=== PATIENT | female | born 1955 | race Caucasian/White ===

== ENCOUNTER 2023-07-30 08:03 | Outpatient (CLI) | payer MEDICARE, SELFPAY ==
--- NOTE | 2023-07-30 08:15 | CRLHL7_ITS ---
For Patients: As a result of the Century Cures Act, medical imaging exams and procedure reports are released immediately into your electronic medical record. You may view this report before your referring provider. If you have questions, please contact your health care provider. BILATERAL DIGITAL SCREENING MAMMOGRAM WITH TOMOSYNTHESIS AND COMPUTER-AIDED DETECTION CLINICAL HISTORY: Routine screening exam. COMPARISON: 07/12/2021, 02/12/2020, 12/27/2018, 02/20/2013. TECHNIQUE: Digital mammogram in CC and MLO projections including computer-aided detection (CAD). Tomosynthesis utilized. BREAST COMPOSITION: There are areas of scattered fibroglandular density. FINDINGS: RIGHT Breast: Focal asymmetric density 6 o`clock 8 cm from the nipple. LEFT Breast: No suspicious findings. IMPRESSION: RIGHT breast asymmetry/mass. RECOMMENDATIONS: Additional mammographic views of the RIGHT breast including 3D spot compression CC/MLO. RIGHT breast ultrasound may also be required. BI-RADS Category 0: Incomplete: Need Additional Imaging Evaluation and/or Prior Mammograms for Comparison The [facility] will contact the patient for follow-up. A lay language report of this examination will be provided to the patient. Dictated by Mckinley Bhatti MD @ 08/01/2023 9:50:00 AM jj/Dictated by: Mckinley Bhatti MD @ 08/01/2023 9:50:00 AM (Electronically Signed)
== END 2023-07-30 08:04 | disposition home or self-care (01) ==
LOC: MAMMO 08:04
PROVIDERS: PCP Family Medicine; Visit Provider Family Medicine
DX: Z12.31 Encounter for screening mammogram for malignant neoplasm of breast (principal); N63.10 Unspecified lump in the right breast, unspecified quadrant
CPT/HCPCS: 77063; 77067

== ENCOUNTER 2023-08-10 07:29 | Outpatient (CLI) | payer MEDICARE, SELFPAY ==
--- NOTE | 2023-08-10 07:45 | CRLHL7_ITS ---
For Patients: As a result of the Cures Act, medical imaging exams and procedure reports are released immediately into your electronic medical record. You may view this report before your referring provider. If you have questions, please contact your health care provider. DIGITAL DIAGNOSTIC RIGHT MAMMOGRAM USING TOMOSYNTHESIS AND COMPUTER-AIDED DETECTION RIGHT BREAST ULTRASOUND CLINICAL HISTORY: RIGHT breast mass/asymmetry. COMPARISON: 07/30/2023, 07/12/2021. TECHNIQUE: Digital RIGHT mammogram in two projections. Tomosynthesis utilized. Real-time ultrasound imaging of RIGHT breast with imaging documentation. BREAST COMPOSITION: There are areas of scattered fibroglandular density. FINDINGS: 3D spot compression CC/MLO RIGHT breast mammogram images submitted. Persistent irregular density within the inferior RIGHT breast. No suspicious calcifications. Targeted RIGHT breast ultrasound performed. At 6 o`clock 5 cm from the nipple there is an irregular hypoechoic and shadowing solid mass measuring 1.7 x 0.8 x 1.1 cm. A suspicious RIGHT axillary lymph node is not present. IMPRESSION: Suspicious 1.7 cm mass RIGHT breast 6 o`clock 5 cm from the nipple. RECOMMENDATIONS: Ultrasound-guided core needle biopsy. Results and recommendations discussed with the patient. BI-RADS Category 4: Suspicious A lay language report of this examination will be provided to the patient. Dictated by Mckinley Bhatti MD @ 08/10/2023 9:01:44 AM j/Dictated by: Mckinley Bhatti MD @ 08/10/2023 9:01:00 AM (Electronically Signed)
--- NOTE | 2023-08-10 08:15 | CRLHL7_ITS ---
For Patients: As a result of the Cures Act, medical imaging exams and procedure reports are released immediately into your electronic medical record. You may view this report before your referring provider. If you have questions, please contact your health care provider. PLEASE SEE DIGITAL DIAGNOSTIC RIGHT MAMMOGRAM PERFORMED SAME DAY CRL:ashley ramirez/Dictated by: Mckinley Bhatti MD @ 08/10/2023 9:01:00 AM (Electronically Signed)
== END 2023-08-10 07:30 | disposition home or self-care (01) ==
LOC: MAMMO 07:35
PROVIDERS: PCP Family Medicine; Visit Provider Family Medicine
DX: N63.10 Unspecified lump in the right breast, unspecified quadrant (principal); R92.8 Other abnormal and inconclusive findings on diagnostic imaging of breast
CPT/HCPCS: 76642; 77065; G0279

== ENCOUNTER 2023-08-16 10:03 | Outpatient (CLI) | payer MEDICARE, SELFPAY ==
--- NOTE | 2023-08-16 10:15 | CRLHL7_ITS ---
For Patients: As a result of the Century Cures Act, medical imaging exams and procedure reports are released immediately into your electronic medical record. You may view this report before your referring provider. If you have questions, please contact your health care provider. ULTRASOUND-GUIDED BREAST BIOPSY AND POST-BIOPSY DIGITAL MAMMOGRAM FOR BIOPSY MARKER PLACEMENT CLINICAL HISTORY: Suspicious mass. COMPARISON STUDIES: 08/10/2023. TECHNIQUE: Real-time ultrasound with image documentation was used for targeting the breast lesion. Core biopsy specimens were obtained using an automated gun with an 18-gauge biopsy needle. Post-biopsy CC and ML digital mammograms were obtained to document position of the biopsy marker. CONSENT and TIME OUT: The procedure, risks, and alternatives were explained to the patient and a consent was signed. [place] Protocol was followed including pre-procedure verification that relevant information/documentation was available, reviewed and properly matched to the patient; consent accurate and complete; and equipment and supplies available. Time Out was conducted just prior to starting procedure to verify the four required elements: patient identity, correct side/site marked (if applicable), procedure, relevant images/results properly labeled and displayed (if applicable). PROCEDURE: The patient was positioned supine on the ultrasound table. The breast was prepped with Betadine or ChloraPrep. 8 cc of 1 percent lidocaine was used for local anesthesia. Core samples were obtained. A sterile metal biopsy clip was placed percutaneously to carl the lesion position within the breast. The specimens were placed in 10% formalin and sent to the pathology department. Pressure was held on the biopsy site until all bleeding subsided. The skin incision was closed with Steri-Strips. An ice pack was positioned over the biopsy site. Post-biopsy instructions were reviewed with the patient, and a written copy was given to her. LATERALITY: RIGHT breast. LESION: Spiculated hypoechoic solid mass measuring 1.7 x 0.8 x 1.1 cm at 6 o`clock 5 cm from the nipple. SUSPICION FOR MALIGNANCY: High. NUMBER OF SAMPLES: 6. BIOPSY CLIP SHAPE: Oval. PROXIMITY OF CLIP TO TARGET: Within the lesion. IMPRESSION: Ultrasound-guided breast biopsy. When the pathology report is available, an addendum to this report will be made. ACR not applicable Dictated by Mckinley Bhatti MD @ 08/16/2023 12:11:50 PM jj/Dictated by: Mckinley Bhatti MD @ 08/16/2023 12:11:00 PM (Electronically Signed)
--- NOTE | 2023-08-16 11:00 | CRLHL7_ITS ---
For Patients: As a result of the Century Cures Act, medical imaging exams and procedure reports are released immediately into your electronic medical record. You may view this report before your referring provider. If you have questions, please contact your health care provider. PLEASE SEE ULTRASOUND-GUIDED RIGHT BREAST BIOPSY PERFORMED SAME DAY CRL:ashley ramirez/Dictated by: Mckinley Bhatti MD @ 08/16/2023 12:11:00 PM (Electronically Signed)
== END 2023-08-16 10:04 | disposition home or self-care (01) ==
LOC: US 10:05
PROVIDERS: PCP Family Medicine; Visit Provider Family Medicine
DX: N63.10 Unspecified lump in the right breast, unspecified quadrant (principal); R92.8 Other abnormal and inconclusive findings on diagnostic imaging of breast
CPT/HCPCS: 19083; 77065; 88305; 88341; 88342; 88360; 88361; A4648; A4649

== ENCOUNTER 2023-08-28 09:06 | Outpatient (CLI) | payer MEDICARE, SELFPAY ==
--- NOTE | 2023-08-28 09:15 | MR_ITS ---
Patient: HARMAN TREVINO Facility:?[facility] RIS Patient ID:?[id number] Site Patient ID:?[id number]. Site :?[id number] Study:?MRI-Breast W/ and W/O Cont 20 CC DOATERM-08/28/2023 12:09:06 PM Ordering Physician:?MOY GUZMAN Final Report: BILATERAL BREAST MRI WITHOUT AND WITH GADOLINIUM CLINICAL HISTORY: Recently diagnosed left breast cancer after ultrasound-guided biopsy of a 1.7 cm mass at 6 o`clock, 5 cm from the nipple. INDICATION FOR BREAST MRI: Staging of newly diagnosed breast cancer and screening of contralateral breast. Regional lymph nodes will also be assessed. COMPARISON STUDIES: Screening mammograms 07/30/2023 and 07/12/2021. Diagnostic right mammogram and ultrasound 08/10/2023. Images from ultrasound-guided right breast biopsy and postbiopsy mammogram 07/16/2023. CONTRAST: 20 mL Dotarem. TECHNIQUE: The patient was positioned prone using a breast coil. Multiple imaging sequences were obtained using 1-1.5 mm thick slices with no gap. The image sequences include T2-weighted STIR in the axial plane, T1-weighted nonfat-saturated gradient echo in the axial plane, pre- and post-contrast T1-weighted FLASH 3D with fat suppression in the axial plane, and T1-weighted FLASH high resolution 3D with fat suppression in the sagittal plane. Image post-processing was performed on a [employer] workstation. Complex 3D rendering including maximum intensity projections (MIPS) and volumetric renderings were obtained to optimize visualization of the extent of pathology and relationship to the nipple, skin, and chest wall. This aids in determining feasibility of breast conservation surgery. Subtraction, multiplanar reconstruction, mean curve determination, and angiogenesis mapping were also performed. The study was technically adequate. FINDINGS: Amount of Fibroglandular Tissue: Scattered fibroglandular tissue. Breast Background Enhancement: Mild. RIGHT Breast: At 6 o`clock posterior depth, 8 cm posterior to the nipple there is an irregular heterogeneously enhancing mass with irregular margins measuring 1.2 x 1.3 x 1.5 cm. There is susceptibility artifact within the mass from the clip marking the site of biopsy-proven malignancy. Kinetic curve analysis shows fast initial and plateau delayed phase enhancement. No other abnormal enhancement within the breasts. LEFT Breast: There is no suspicious mass or enhancement within the breast. Lymph Nodes: No abnormal morphology lymph nodes. Other Findings: There are 0.9 and 0.3 cm T2 hyperintense, nonenhancing probable cysts in the left hepatic lobe. IMPRESSIONS AND RECOMMENDATIONS: 1. The biopsy-proven malignancy at 6 o`clock in the right breast measures up to 1.5 cm on MRI. Continued surgical/oncologic management is recommended. 2. No MRI evidence of malignancy in the left breast. 3. No abnormal morphology lymph nodes. BI-RADS Category 6: Known, biopsy-proven malignancy Dictated by Terra Christensen MD @ 09/24/2023 3:59:22 PM jj/Dictated by: Terra Christensen MD @ 09/24/2023 4:13:00 PM Signed by:Rosi Christensen MD @09/24/2023 5:15:58 PM (Electronic Signature)
== END 2023-08-28 09:07 | disposition home or self-care (01) ==
LOC: MRI 09:08
PROVIDERS: PCP Family Medicine; Visit Provider Surgery
DX: C50.911 Malignant neoplasm of unspecified site of right female breast (principal)
CPT/HCPCS: 77049; C8908; C8937; A9575

== ENCOUNTER 2023-09-13 06:50 | Day surgery (SDC) | payer MEDICARE, SELFPAY ==
--- NOTE | 2023-09-13 | MM_ITS ---
Patient: HARMAN TREVINO Facility:?[facility] RIS Patient ID:?[id number] Site Patient ID:?[id number]. Site :?[id number] Study:?XRay-Breast Right 2Dw/ CAD post wire placement-09/13/2023 9:50:07 AM Ordering Physician:?Rozina Angeles Final Report: PLEASE SEE ULTRASOUND-GUIDED RIGHT BREAST WIRE LOCALIZATION DONE SAME DAY CRL:ashley ramirez/Dictated by: Mckinley Bhatti MD @ 09/13/2023 10:05:00 AM Signed by:?Mckinley Bhatti MD @09/13/2023 11:45:29 AM (Electronic Signature)
[2023-09-13 07:07] VITALS: BP 123/77; PULSE 75; RESP 16; TEMP 36.6; O2SAT 96
[2023-09-13] MEDS: LACTATED RINGERS 1000 ML 1,000 ML 100 ML IV (07:34)
[2023-09-13] MEDS: SODIUM CHLORIDE 0.9 % (FLUSH) 10 ML SYRINGE IVF (07:34)
--- NOTE | 2023-09-13 08:00 | NM_ITS ---
Patient: HARMAN TREVINO Facility:?[facility] Patient ID:?[id number] Site Patient ID:?[id number]. Site :?[id number] Study:?NM-Breast Procedure Lymphangioscintigraphy-09/13/2023 8:52:52 AM Ordering Physician:MOY BAUER Final Report: SENTINEL LYMPH NODE LOCALIZATION INJECTION CLINICAL HISTORY: Right breast cancer LATERALITY: Right breast TECHNIQUE: With the patient supine, the periareolar right breast was cleansed with alcohol. 0.72 millicuries of technetium Tc 99m filtered sulfur colloid in a volume of 1 cc was injected intradermal in the upper outer periareolar breast with a 22- gauge needle. The patient tolerated the procedure well and there were no immediate complications. IMPRESSION: Injection for sentinel lymph node of the right breast. Dictated by Mckinley Bhatti MD @ 09/13/2023 9:12:05 AM Signed by:?Mckinley Bhatti MD @09/13/2023 9:12:05 AM (Electronic Signature)
--- NOTE | 2023-09-13 08:00 | NM_ITS ---
Patient: HARMAN TREVINO Facility:?[facility] Patient ID:?[id number] Site Patient ID:?[id number]. Site :?1955 Study:?NM-Breast Procedure Lymphangioscintigraphy-09/13/2023 8:52:52 AM Ordering Physician:MOY BAUER Final Report: SENTINEL LYMPH NODE LOCALIZATION INJECTION CLINICAL HISTORY: Right breast cancer LATERALITY: Right breast TECHNIQUE: With the patient supine, the periareolar right breast was cleansed with alcohol. 0.72 millicuries of technetium Tc 99m filtered sulfur colloid in a volume of 1 cc was injected intradermal in the upper outer periareolar breast with a 22- gauge needle. The patient tolerated the procedure well and there were no immediate complications. IMPRESSION: Injection for sentinel lymph node of the right breast. Dictated by Mckinley Bhatti MD @ 09/13/2023 9:12:05 AM Signed by:?Mckinley Bhatti MD @09/13/2023 9:12:05 AM (Electronic Signature)
--- NOTE | 2023-09-13 08:15 | US_ITS ---
Patient: HARMAN TREVINO Facility:?[facility] Patient ID:?[id number] Site Patient ID:?[id number]. Site :?1955 Study:?US-Breast Procedure Dr. Bhatti to read-09/13/2023 9:11:33 AM Ordering Physician:LIZETTE Final Report: BREAST WIRE LOCALIZATION USING ULTRASOUND GUIDANCE CLINICAL HISTORY: Right breast cancer. LATERALITY: Right breast. LESION: Solid hypoechoic lesion measuring 1.7 x 0.8 x 1.1 cm at 6 o`clock 5 cm from the nipple. LOCALIZATION WIRE: [place] hookwire. TECHNIQUE: The localization wire was placed using real-time ultrasound guidance with image documentation. Cranial-caudal and medial-lateral digital mammograms were obtained after localization wire placement. CONSENT and TIME OUT: The procedure, risks, and alternatives were explained to the patient and a consent was signed. [facility] Protocol was followed including pre-procedure verification that relevant information/documentation was available, reviewed and properly matched to the patient; consent accurate and complete; and equipment and supplies available. Time Out was conducted just prior to starting procedure to verify the four required elements: patient identity, correct side/site marked (if applicable), procedure, relevant images/results properly labeled and displayed (if applicable). PROCEDURE: The skin was prepped with ChloraPrep and 5 cc of 1% lidocaine was injected for local anesthesia. The localization wire was placed within or near the targeted breast lesion using ultrasound guidance. The patient tolerated the procedure well. PROXIMITY OF WIRE TO LESION: The wire is located within the mass adjacent to the clip. IMPRESSION: Successful breast wire localization. ACR not applicable Dictated by Mckinley Bhatti MD @ 09/13/2023 9:14:04 AM jj/Dictated by: Mckinley Bhatti MD @ 09/13/2023 9:14:00 AM Signed by:?Mckinley Bhatti MD @09/13/2023 11:45:40 AM (Electronic Signature)
--- NOTE | 2023-09-13 08:52 | MM_ITS ---
Patient: HARMAN TREVINO Facility:?[facility] Patient ID:?[id number] Site Patient ID:?[id number]. Site :?1955 Study:?XRay-Breast Right 2Dw/ CAD post wire placement-09/13/2023 9:50:07 AM Ordering Physician:?Rozina Angeles Final Report: PLEASE SEE ULTRASOUND-GUIDED RIGHT BREAST WIRE LOCALIZATION DONE SAME DAY CRL:ashley ramirez/Dictated by: Mckinley Bhatti MD @ 09/13/2023 10:05:00 AM Signed by:?Mckinley Bhatti MD @09/13/2023 11:45:29 AM (Electronic Signature)
[2023-09-13] MEDS: ISOSULFAN BLUE 5 ML VIAL INJECTION (10:25)
--- NOTE | 2023-09-13 10:27 | P.GSOP_ITS ---
Operative Note Date of procedure: 09/13/23 Pre-op diagnosis: Right breast invasive ductal carcinoma Post-op diagnosis: Same Type of Procedure: 1. Right lumpectomy with preoperative wire localization 2. Right axillary sentinel node biopsy Indications: The patient is a 68-year-old female who was found on screening mammogram to have a right-sided breast mass. This was biopsied and found to be Invasive ductal carcinoma, grade 2, ERPR positive, HER2 negative. After discussion of treatment options she elected to proceed with lumpectomy and sentinel node biopsy. Procedure Description: After discussion of risks and benefits, the patient was brought to the operating room and placed supine on the operating table. General anesthesia was induced. 1 hr to incision, radiotracer was injected into the dermis the right breast just above the areola. 10 min prior to the incision I injected 3 ml isosulfan blue dye into the dermis above the areola. This was massaged for 3 min. Once this was completed, the area was prepped and draped sterilely. A time-out was then completed. After injecting local anesthetic, an incision was made at the inferior aspect of the nipple-areolar complex. Dissection was taken down in a subcutaneous plane until the localizing wire was encountered. This was pulled through the incision. Dissection was taken down to the chest wall. A swath of breast tissue around the wire was dissected out using cautery, again down to the chest wall. This was removed and sent for x-ray. This was found to contain the clip. This was then sent to pathology. Attention was then turned to the sentinel lymph node biopsy. Local anesthetic was injected into the skin just below the axillary hairline. An incision was then created and dissection was taken down through the clavipectoral fascia. Immediately there was a firm node encountered. This appeared to be stuck to an adjacent node. It was of normal size, however since it appeared to be matted, this was removed. I then identified 2 small blue lymphatics. The probe was brought into the field. This was used to identify a node which was also blue. This was carefully dissected free of the surrounding fat using cautery. The signal was measured at 350. The probe was placed back into the wound bed and a signal around 50 was noted. Since this is greater than 10% of the prior node, dissection continued and an adjacent 2nd lymph node was dissected free of the surrounding fat. A small lymphatic channel was clipped. This was measured at 76 ex vivo. No further signal was noted in the axilla. There were no further suspicious nodes and also no further lymphatic channels. These lymph nodes were sent together as sentinel lymph nodes. Pathology returned showing that the margin on the lumpectomy specimen anteriorly and inferiorly was close. Therefore, an additional approximately 1 cm margin of tissue was excised using cautery. This was then re-inked for margins and sent to pathology in formalin. At this point hemostasis in both wound beds appeared excellent. Marking clips were placed in the lumpectomy cavity for localization for planned radiation. The wounds were then closed with 3-0 Vicryl dermal and 4-0 Monocryl running subcuticular suture. Glue was then applied. ? The patient was then woken and transported to the recovery area in stable condition. ? The patient tolerated the procedure well. Findings: 1. Right lumpectomy specimen with close anterior margin, reexcised. Clip noted in mammogram image 2. Two right axillary sentinel nodes identified, additional matted node identified and removed. Anesthesia: GETA Surgeon: Rozina Angeles MD Estimated blood loss (mL): 10 Additional Specimen Information: 1. Right lumpectomy for x-ray and gross margins (and permanent section) 2. Right axillary sentinel lymph nodes 3. Re-excision right lumpectomy anterior/inferior margin Condition: stable Disposition: PACU [place] Node Biopsy for Breast Cancer Operation Performed with Curative Intent: Yes Tracers used to Identify sentinel nodes in the upfront surgery (non-neoadjuvant) setting: Dye and Radioactive Tracer Tracers used to identify sentinel nodes in the neoadjuvant setting: N/A All nodes (colored or non-colored) present at the end of a dye filled lymphatic channel were removed: Yes All significantly radioactive nodes were removed: Yes All palpably suspicious nodes were removed: Yes Biopsy proven positive nodes marked with clips prior to chemotherapy were identified and removed: Not Applicable
[2023-09-13] MEDS: CEFAZOLIN 1 GM inj IVP (10:33)
--- NOTE | 2023-09-13 10:55 | MM_ITS ---
Patient: HARMAN TREVINO Facility:?[facility] Patient ID:?[id number] Site Patient ID:?[id number]. Site :?1955 Study:?XRay-Breast Right 2D W/CAD surgical specimen-09/13/2023 12:13:27 PM Ordering Physician:?Yolis Samayoa Final Report: RIGHT BREAST SPECIMEN RADIOGRAPH CLINICAL HISTORY: Right breast cancer, post lumpectomy. COMPARISON: 08/10/2023. FINDINGS: Two views right breast specimen radiograph submitted. Specimen contains the biopsied mass, the biopsy clip and the localization wire. IMPRESSION: Specimen contains the mass, clip and wire. ACR not applicable Dictated by Mckinley Bhatti MD @ 09/14/2023 9:00:34 AM jj/Dictated by: Mckinley Bhatti MD @ 09/14/2023 9:00:00 AM Signed by:?Mckinley Bhatti MD @09/14/2023 11:34:14 AM (Electronic Signature)
[2023-09-13] MEDS: BUPIVACAINE 0.25% 30 ML INJECTION (11:20)
[2023-09-13] MEDS: LIDOCAINE 1% MDV 20 ML INJECTION (11:20)
--- NOTE | 2023-09-13 11:27 | W.ANESCHARGE ---
Anesthesia Charges Start Date/Time Anesthesia Start Date: 09/13/23 Anesthesia Start Time: 10:09 Stop Date/Time Anesthesia Stop Date: 09/13/23 Anesthesia Stop Time: 12:05
--- NOTE | 2023-09-13 12:10 | W.ANESCHARGE ---
Anesthesia Charges Start Date/Time Anesthesia Start Date: 09/13/23 Anesthesia Start Time: 10:09 Stop Date/Time Anesthesia Stop Date: 09/13/23 Anesthesia Stop Time: 12:05
[2023-09-13 12:19] VITALS: BP 103/65; PULSE 72; RESP 16; TEMP 36.2; O2SAT 93
[2023-09-13 12:36] VITALS: BP 106/96; PULSE 52; RESP 16; O2SAT 92
[2023-09-13 12:50] VITALS: BP 115/66; PULSE 52; RESP 16; O2SAT 98
== END 2023-09-13 13:15 | disposition home or self-care (01) ==
PROVIDERS: PCP Family Medicine; Visit Provider Surgery
PROC: (CPT 19302; principal; 2023-09-13 10:00)
PROC: (CPT 19302; 2023-09-13 10:00)
PROC: (CPT 19302; 2023-09-13 10:00)
DX: C50.811 Malignant neoplasm of overlapping sites of right female breast (principal); Z17.0 Estrogen receptor positive status [ER+]
CPT/HCPCS: 19302; 01610; 19285; 38792; 77065; 88307; 88361; A9541; C1769; J0665; J0690; J1885; J2250; J2704; J3010; J3490; J7120

== ENCOUNTER 2023-11-01 13:49 | Outpatient (CLI) | payer MEDICARE, SELFPAY ==
--- NOTE | 2023-11-01 14:00 | XR_ITS ---
Patient: HARMAN TREVINO Facility:?[facility] Patient ID:?[id number] Site Patient ID:?[id number]. Site :?1955 Study:?DEXA-Bone Density -11/01/2023 3:38:13 PM Ordering Physician:TERESSA Final Report: DXA BONE MINERAL DENSITY STUDY Reason for exam: Breast cancer, osteoarthritis. Current height (inches): 59.0 Weight (lbs.): 130.0 Menopause age: 51 Ethnicity: White 1. Have you had a previous hip or vertebral fracture? No. 2. Have you had any fractures during your adult life which did not result from significant trauma (e.g., auto accident)? No. 3. Did either of your parents have a hip fracture? No. 4. Do you smoke? No. 5. Have you ever taken Glucocorticoids? No. 6. Do you have rheumatoid arthritis? No. 7. Do you have secondary osteoporosis? No. 8. Do you drink 3 or more alcoholic drinks per day? No. 9. Are you being treated for osteoporosis? No. 10. Have you ever taken any of the following medications: Actonel, Evista, Fosamax, Miacalcin, Reclast, Boniva, Forteo, HRT (i.e., estrogen/hormone therapy), Protelos, Prolia, Vitamin D, Calcium, other ? please specify. ANSWER: Yes; vitamin D. 11. Do you have any of the following medical conditions: Anorexia or bulimia, asthma or emphysema, end stage renal disease, hyperparathyroidism, any seizure disorders, cancer, inflammatory bowel diseases, hysterectomy, other ? please specify. ANSWER: Yes; Breast cancer. 12. What was your maximum height (inches)? 59.5. 13. Do you perform weightbearing exercise regularly? Yes. 14. Do you regularly consume dairy products? No. 15. Do you drink caffeinated beverages? Yes. 16. At what age did your period start? 12. 17. Are you premenopausal? No. 18. How many full-term pregnancies have you had? 2. 19. Have you ever missed your period for more than 6 months in a row (not including or menopause)? No. TECHNIQUE: Bone mineral density study was performed using the [employer]. FINDINGS: The results of the study expressed as bone mineral density (BMD) are as follows: Lumbar Spine L1 to L4: BMD: 0.746 g/cm2. T-score: -2.7. Z-score: -0.8. Neck Left: BMD: 0.549 g/cm2. T-score: -2.7. Z-score: -1.0. Right: BMD: 0.602 g/cm2. T-score: -2.2. Z-score: -0.6. Total Left: BMD: 0.682 g/cm2. T-score: -2.1. Z-score: -0.8. Right: BMD: 0.765 g/cm2. T-score: -1.5. Z-score: -0.1. IMPRESSION: Osteoporosis. YONATHAN CHIN M.D. Diagnostic Radiologist [email or web address] [email or web address]/chana D& Transcribed: 12:[address]/Dictated by: Yonathan Chin MD @ 11/02/2023 11:45:00 AM Signed by:?Yonathan Chin MD @11/02/2023 12:30:18 PM (Electronic Signature)
== END 2023-11-01 13:50 | disposition home or self-care (01) ==
LOC: RAD 13:51
PROVIDERS: PCP Family Medicine; Visit Provider Internal Medicine Hematology & Oncology
DX: C50.919 Malignant neoplasm of unspecified site of unspecified female breast (principal); M81.0 Age-related osteoporosis without current pathological fracture; N95.9 Unspecified menopausal and perimenopausal disorder
CPT/HCPCS: 77080

== ENCOUNTER 2023-11-26 14:00 | Outpatient (RCR) | payer MEDICARE, SELFPAY ==
--- NOTE | 2023-09-28 11:44 | ONC.NURNOTE ---
Pathology report reviewed with Dr. Marcano. Instructed to proceed with Oncotype testing. Request made for Oncotype testing with [facility]. Will await the results and review at 10/09 consult.
--- NOTE | 2023-10-10 14:07 | ONC.NURNOTE ---
Copy of todays note and Oncotype report faxed to Dr. Deshpande office. No chemotherapy indicated. Patient can proceed with radiation. They will call patient to schedule.
== END 2024-04-07 23:59 | disposition home or self-care (01) ==
LOC: CCIC 14:00
PROVIDERS: PCP Family Medicine; Visit Provider Internal Medicine Hematology & Oncology
DX: C50.911 Malignant neoplasm of unspecified site of right female breast (principal); Z17.0 Estrogen receptor positive status [ER+]; M81.0 Age-related osteoporosis without current pathological fracture
CPT/HCPCS: 99202; 99205; 99215; G0463

== ENCOUNTER 2024-01-28 12:04 | Day surgery (SDC) | payer MEDICARE, SELFPAY ==
[2024-01-28 12:19] VITALS: BMI 27.3
[2024-01-28 12:20] VITALS: BP 145/81; PULSE 74; RESP 16; TEMP 37.1; O2SAT 98
[2024-01-28] MEDS: BUPIVACAINE 0.5% 30 ML INJECTION (14:00)
[2024-01-28] MEDS: ETHYL CHLORIDE 1 APPLICATION 1 APPLIC TOPICAL (14:00)
[2024-01-28 14:55] VITALS: BP 139/65; PULSE 71; RESP 16; O2SAT 98
[2024-01-28 15:00] VITALS: BP 137/67; PULSE 74; RESP 16; O2SAT 99
[2024-01-28 15:05] VITALS: BP 138/72; PULSE 76; RESP 16; O2SAT 98
[2024-01-28 15:08] VITALS: BP 135/71; PULSE 69; RESP 16; O2SAT 99
[2024-01-28] MEDS: BACITRACIN OINTMENT BULK TUBE 1 APPLIC TOPICAL (15:11)
--- NOTE | 2024-01-28 15:11 | PM.ORPRC ---
Procedure Note Date of procedure: 01/28/24 Procedure: PREOPERATIVE DIAGNOSIS: 1. Right ring finger flexor tenosynovitis - trigger finger POSTOPERATIVE DIAGNOSIS: 1. Right ring finger flexor tenosynovitis - trigger finger PROCEDURE: 1. Right ring finger flexor tendon sheath open release (A1 angela) SURGEON: Felipe Oh MD. DATA COMMUNICATIONS SOFTWARE CONSULTANT: Ezequiel Guerin PA-C ANESTHESIA: Local anesthetic 4ml via 50:50 mixture of 1% Lidocaine with epi and 0.5% marcaine plain EBL: 2mL IMPLANTS: None TOURNIQUET: None COMPLICATIONS: None evident INDICATIONS: The patient is a pleasant 68-year-old female who has experienced right ring finger catching/triggering for number of months. It has progressively gotten worse. Given the failure of nonoperative management, and how this affects daily life, surgery was recommended. DESCRIPTION OF PROCEDURE: Following a thorough discussion of risks, benefits, and alternatives consent was obtained and the operative digit(s) was marked. The patient was brought to the operating room and placed supine on the operating table. Local anesthesia induction was undertaken in preop holding. No antibiotics were administered as this was planned to be a local case only. Proper time-out was performed identifying proper patient, site, and procedure. The operative extremity was prepped and draped in the appropriate sterile fashion using ChloraPrep. An incision was made on the palmar surface of the hand overlying the MCP joint region of the appropriate digit(s) respecting the palmar creases being cautious not to cross these perpendicularly. Sharp incision through the skin, and blunt dissection through subcutaneous tissue allowing protection of crossing neurologic structures. The A1 angela was visualized directly. It was incised sharply with a 15 blade. It was released completely from its distal to proximal extent under direct visualization. The tendon was inspected and found to be mildly striated consistent with some friction. Otherwise, it was intact. The tendon was removed out of the wound, and further inspected. The patient was asked to manually flex and extend the digits and showed no further catching. The catching, which was visualized initially, was no longer evident with reproduction of a manual fist and relaxation. Closure was performed with 4-O nylon in interrupted fashion. Soft dressings were applied, and the patient was transferred to the recovery room in stable condition. PLAN: 1. Encourage elevation of the operative extremity. 2. Range of motion of the fingers and hand/wrist as tolerated. 3. Ibuprofen/acetaminophen and/or oxycodone as needed for pain control. 4. Follow up with PA visit in 12-16 days for wound check and suture removal.
[2024-01-28 15:20] VITALS: BP 140/71; PULSE 67; RESP 16; TEMP 36.1; O2SAT 98
== END 2024-01-28 15:27 | disposition home or self-care (01) ==
PROVIDERS: PCP Family Medicine; Visit Provider Orthopaedic Surgery Sports Medicine
PROC: (CPT 26055; principal; 2024-01-28 13:00)
DX: M65.341 Trigger finger, right ring finger (principal); M65.841 Other synovitis and tenosynovitis, right hand
CPT/HCPCS: 26055; J0665

== ENCOUNTER 2024-02-18 06:28 | Outpatient (CLI) | payer MEDICARE, SELFPAY ==
--- NOTE | 2024-02-18 07:57 | W.ANESCHARGE ---
Anesthesia Charges Start Date/Time Anesthesia Start Date: 02/18/24 Anesthesia Start Time: 07:28 Stop Date/Time Anesthesia Stop Date: 02/18/24 Anesthesia Stop Time: 07:52
== END 2024-02-18 06:29 | disposition home or self-care (01) ==
LOC: OP CLINIC 06:28
PROVIDERS: PCP Family Medicine; Visit Provider Surgery
DX: Z12.11 Encounter for screening for malignant neoplasm of colon (principal); K57.30 Diverticulosis of large intestine without perforation or abscess without bleeding; Z86.010 Personal history of colon polyps
CPT/HCPCS: 00812; 45378; J2704

== ENCOUNTER 2024-05-13 13:20 | Emergency (ER) | payer MEDICARE, SELFPAY ==
[2024-05-13 13:23] VITALS: BP 139/87; PULSE 78; RESP 18; TEMP 36.7; O2SAT 97; BMI 26.3
--- NOTE | 2024-05-13 13:42 | ED.GENADULT ---
HPI - General Adult General Date Seen: 05/13/24 Chief complaint: Headache/Migraine Stated complaint: headache/blurred vision/trouble speaking Time Seen by Provider: 05/13/24 13:41 History of Present Illness HPI narrative: 69-year-old female with history of lymphocytic colitis, sleep apnea, sensorineural hearing loss, colon polyps, osteoarthritis, history of invasive ductal carcinoma right breast, status post resection and radiation. Not on chemo. On tamoxifen She has no history of strokes, heart attacks, coronary vascular disease. She presents to the ER today with her and son who give her ancillary history for her. She notes that this morning she was on her ER doing some work, light physical labor. She was spreading small shovel fulls of dirt onto her yd. She noted that when she was bending down to spread that hurts she was fine but then when she would stand up she would get slightly lightheaded. She went in from that was feeling fine. She was fixing some lunch. She was talking to her son in for about a minute she had an expressive aphasia where she had a lot of word-finding difficulty. Symptoms resolved after about a minute or so, per her son. No other symptoms that he noticed at that time. No facial droop. No unilateral weakness. Patient does not recall any facial droop, numbness of her face or tongue, numbness in her arms or legs. She feels back to normal now and has no ongoing neurologic symptoms. Shortly after that episode of aphasia she developed a mild bifrontal headache. She does not usually get any headaches and also has 1 is unusual in the fact that it is present. It is not very severe. She says she would probably discolored down and take a nap for headache of this severity. She has a little bit of some flashing lights in her eyes and spots and a little bit of halos in her vision around some objects. No other wiggly lines are clear scotomata. Per oncology note from November 2023 68-year-old very pleasant lady with new diagnosis of right-sided invasive ductal carcinoma, T1cN0, ER positive 90% TX positive 87%, HER2 negative IHC 0, Ki-67 8%, close anterior inferior and posterior margin, reexcision done for anterior inferior margin levels negative for atypia or malignancy, stage I A anatomic and prognostic--Oncotype DX recurrence score of 15, distant recurrence risk at 9 years with endocrine therapy alone is at 4%, group average chemo benefit less than 1%--> completed radiation for to the right breast between 10/29/2023-11/02/2023--> DEXA scan consistent with osteoporosis, she declined endocrine therapy. -ECOG 0 -overall management surgery followed by followed by radiation followed by endocrine therapy -Oncotype DX recurrence score: 15 -concluded radiation -we reviewed and discussed endocrine therapy in 11/26/2023, fda package insert for tamoxifen was reviewed and discussed (since she has osteoporosis on DEXA scan) -after elaborate discussion she will indicated that she does not wish to have endocrine therapy at all at this point. -encouraged to have mammogram at least 6 months from radiation or 1 year from last mammogram. -encouraged to touch base with primary care physician with regards to osteoporotic treatment. -return visit in 6 months. Related Data Home Medications ?Medication ?Instructions ?Recorded ?Confirmed triamcinolone acetonide 0.1 % 1 applic topical BID-TID 10/01/23 02/08/24 topical cream cholecalciferol (vitamin D3) 125 125 mcg PO .COMPLEX 10/10/23 02/08/24 mcg (5,000 unit) capsule digest gold w/ ATPro .Route 10/10/23 02/08/24 pure genomics multivitamin .Route 10/10/23 02/08/24 tri-iodine 10/10/23 02/08/24 vitamin K2 45 mcg capsule 45 mcg PO QDAY 10/10/23 02/08/24 Previous Rx's ?Medication ?Instructions ?Recorded peg 3350-electrolytes 236 240 ml PO Q10M #4,000 mL 01/11/24 gram-22.74 gram-6.74 gram-5.86 gram solution (Golytely) Allergies Allergy/AdvReac Type Severity Reaction Status Date / Time adhesive Allergy rash Verified 02/18/24 07:53 Milk Containing Products Allergy Verified 02/18/24 07:53 (Dairy) pollens Allergy Uncoded 02/18/24 07:53 [facility] Medical History Trigger finger, left middle finger ?M65.332 - Trigger finger, left middle finger (ICD-10) Lymphocytic colitis ?K52.832 - Lymphocytic colitis (ICD-10) Squamous cell carcinoma of skin of face (06/2021) ?C44.320 - Squamous cell carcinoma of skin of unspecified parts of face (ICD-10) Sensorineural hearing loss (SNHL) ?H90.5 - Unspecified sensorineural hearing loss (ICD-10) Obstructive sleep apnea syndrome ?G47.33 - Obstructive sleep apnea (adult) (pediatric) (ICD-10) History of adenomatous polyp of colon (01/13/19) ?Z86.010 - Personal history of colonic polyps (ICD-10) Allergic rhinitis (10/29/11) ?J30.9 - Allergic rhinitis, unspecified (ICD-10) Surgical History Hx of local excision of skin lesion (~2019) ?Z98.890 - Other specified postprocedural states (ICD-10) S/P right knee arthroscopy (11/02/17) ?Z98.890 - Other specified postprocedural states (ICD-10) History of colposcopy with cervical biopsy (1997) ?Z98.890 - Other specified postprocedural states (ICD-10) Family History Father Coronary artery disease Bladder cancer Paternal Grandfather Stroke Mother Colon polyps Aunt Breast cancer Maternal Grandmother Stomach cancer Son Diabetes Social History (Updated 09/11/23 @ 12:50 by Karen Whitfield ~ CTA) Narrative: , retired teacher, 2 adult children Lifetime nonsmoker Rare alcohol use Exercise by walking dog daily, gardening, yard work What is your current living situation?: declined to answer Problems where you live: declined to answer In the past 12 months, utilities in danger of being shut off: declined to answer In past 12 months, lack of transportation kept you from medical appts, meetings, work, or getting things needed for daily living: declined to answer In the past 12 mos, have been you worried that your food would run out before you had money to buy more?: declined to answer In the past 12 mos, the food you bought just didn't last and you didn't have money to buy more?: declined to answer Smoking Status: Never smoker Do you use any of these nicotine containing products: None How often do you have a drink containing alcohol: monthly or less Alcohol type: wine How many standard drinks containing alcohol do you have on a typical day: 1 or 2 How often do you have six or more drinks on one occasion: Never AUDIT-C Alcohol total score: 1 Non-prescribed substance use: denies use Caffeine: Yes How often does anyone, including family, friends and others, physically hurt you: decline to answer How often does anyone, including family, friends and others, insult or talk down to you: decline to answer How often does anyone, including family, friends and others, threaten you with harm: decline to answer How often does anyone, including family, friends and others, scream or curse at you: decline to answer Little interest or pleasure in doing things: not at all Feeling down, depressed, or hopeless: not at all Are you using contraception or practicing any form of control: No Exam Narrative: Exam Narrative: Constitutional: Appears well-developed and well-nourished. Alert. Conversant. Non toxic. HENT: Head: Atraumatic. Nose: Nose normal. Mouth/Throat: Oral mucosa is clear and moist. no trismus. Pharynx normal. Tonsils symmetric. No tonsillar enlargement, erythema, or exudate. Eyes: Conjunctivae normal. EOM normal. Pupils equal, round, and reactive to light. No scleral icterus. Neck: Normal range of motion. Neck supple. No tracheal deviation present. Cardiovascular: Normal rate, regular rhythm. No gallop. No friction rub. No murmur heard. Symmetric radial artery pulses Pulmonary/Chest: Effort normal. No stridor. No respiratory distress. No wheezes. No rales. No rhonchi . No tenderness. Abdominal: Soft. Bowel sounds normal. No distension. No mass. No tenderness. No rebound. No guarding. Musculoskeletal: RUE: Normal range of motion. No tenderness. No deformity LUE: Normal range of motion. No tenderness. No deformity RLE: Normal range of motion. No edema. No tenderness. No deformity LLE: Normal range of motion. No edema. No tenderness. No deformity Lymph: No cervical adenopathy. Mental status normal. Attention normal. Alert and oriented x3. GCS 15. Memory normal. Speech fluent. Cognition normal. Cranial Nerves intact II-XII except I did not formally test gag or visual acuity. EOMI. Palate elevates symmetrically and tongue protrudes in the midline. Strength: 5/5 trapezius on the right and left 5/5 deltoid on the right and left 5/5 biceps on the right and left 5/5 triceps on the right and left 5/5 grain elevator motor starter on the right and left 5/5 thumb opposition on the right and left 5/5 finger abduction on the right and left 5/5 hip flexors (L3) on the right and left 5/5 quadriceps (L4) on the right and left 5/5 tibialis anterior on the right and left 5/5 EHL (L5) on the right and left 5/5 gastrocnemius (S1) on the right and left 5/5 hamstring on the right and left Sensation intact to light touch in both upper extremities (C4-T1) Sensation intact to light touch in Both lower extremities (L4-S1). Finger to nose and coordination normal. Gait normal. NIH stroke scale= O at presentation Skin: Skin is warm and dry. No rash noted. No pallor. Normal capillary refill. Psychiatric: Normal mood. Normal affect. Const: Vital Signs, click to edit/add: Vital Signs - 24 hr 05/13/24 13:23 05/13/24 16:22 Temperature 98.0 F Pulse Rate [Right Pulse Oximeter] 78 70 Respiratory Rate 18 16 Blood Pressure [Ri ght Upper Arm] 139/87 135/78 Pulse Oximetry 97 96 Oxygen Delivery Me thod Room Air Course Course ED Course: Patient arrived in the ER and was roomed in the ER room for. History and physical exam performed. She is not having any active neurologic symptoms but does have headache associated with some visual disturbance and visual auras. Does not meet criteria for stroke team activation and is not a thrombolytic candidate since neurologic deficits are now resolved. However does need workup for possible TIA or other cause of her symptoms. Differential would be possible TIA, migraine with aura, possible brain met, possible partial seizure causing her speech episode. CT/CTA ordered Discussed with Stroke Neurology, Dr. Batres. She also recommends brain MRI and will see the patient Reevaluation(s) Reevaluation #1: Recheck-doing well. No recurrent neurologic deficits. Recheck-discussed with Dr. Batres. She agrees with plan to get MRI. She recommends that we follow-up with her evening partner, Dr. Marcelino when MRI is back, anticipated not be back until around 4 or 5:00 p.m.. Reevaluation #2: MRI back. MRI looks normal. No acute infarcts. No signs of demyelinating lesions. No evidence for any brain tumors or metastases. Discussed again with Stroke Neurology. Dr. Batres is now off duty so I discussed with her evening partner, Dr. Marcelino. She would recommend that we continue TIA workup and admit the patient for observation so she can have cardiac monitoring, and inpatient echocardiogram. Reevaluation #3: Discussed this with the patient as well as her and son. We discussed the uncertainty in the diagnosis (could have been TIA, could have been an atypical migraine aura). If this was a TIA there is a small but non 0 chance that she could have more TIAs or a completed stroke over the next couple of days. Based on her ABCD2 score, for 48 hour risk for completed stroke is 1%, 7 day risk for completed stroke is 1.2%, and 330 day risk for completed stroke is 3%. We discussed the important of expediting her TIA workup because if there is any reversible condition that could be treated to prevent strokes, it is best to be done expeditiously. Our recommendation is to admit for observation. However patient is concerned about the financial implications of a hospitalization. After discussion with her and son, she and her family are at choosing to discharge home. They will follow-up with her primary care provider for further workup. Will start the patient on aspirin 81 mg per day (dosage as recommended by Stroke Neuro) for prophylaxis. She will follow-up with her primary care provider for further workup. Likely will need cholesterol check, outpatient monitoring specialist, echocardiogram to look for PFO, blood pressure monitoring. Precautions for return to the ER reviewed Vital Signs Vital signs: Initial Vital Signs Temperature 98.0 F 05/13/24 13:23 Temperature Source Temporal Artery Scan 05/13/24 13:23 Pulse Rate 78 05/13/24 13:23 Respiratory Rate 18 05/13/24 13:23 Blood Pressure 139/87 05/13/24 13:23 Blood Pressure Mean 104 05/13/24 13:23 Blood Pressure Position Sitting 05/13/24 13:23 Pulse Oximetry 97 05/13/24 13:23 Oxygen Delivery Method Room Air 05/13/24 13:23 Vital Signs Temperature 98.0 F 05/13/24 13:23 Pulse Rate 78 05/13/24 13:23 Respiratory Rate 18 05/13/24 13:23 Blood Pressure 139/87 05/13/24 13:23 Pulse Oximetry 97 05/13/24 13:23 Oxygen Delivery Method Room Air 05/13/24 13:23 Temperature 98.0 F 05/13/24 13:23 Pulse Rate 70 05/13/24 16:22 Respiratory Rate 16 05/13/24 16:22 Blood Pressure 135/78 05/13/24 16:22 Pulse Oximetry 96 05/13/24 16:22 Oxygen Delivery Method Room Air 05/13/24 13:23 Medications Administered Medications: Discontinued Medications Generic Name Dose Route Start Last Admin Trade Name Freq PRN Reason Stop Dose Admin Ketorolac Tromethamine 15 mg 05/13/24 14:03 05/13/24 14:36 Ketorolac 15 Mg/Ml Inj IVP 05/13/24 14:04 15 mg ONCE ONE Administration Medical Decision Making MDM Narrative Medical decision making narrative: Very pleasant 69-year-old female presented to the ER today with a 1 minute episode of word-finding difficulty and inability to speak followed by mild bifrontal headache and some visual auras with ?halos? around objects affecting both of her eyes. Throughout her ER stay she had no active neurologic symptoms safe for her headache. Differential here included migraine with aura but she has never had similar or or migraines in the past and would be a bit atypical to develop a migraine at her current age. Differential would also include stroke, TIA. See above. So far workup reassuring but needs further testing and may need long-term prophylaxis with anti-platelet agents. Differential would also include partial seizure from a new breast cancer brain met. Fortunately brain MRI is normal. In terms of her headache it was not severe or sudden on onset. There is no evidence for aneurysmal disease on her CT angiogram. No associated neck stiffness or fever or other infectious symptoms does raise concern for meningitis or encephalitis. No active neuro symptoms to suggest ongoing stroke or seizure here in the ER. Laboratory workup reassuring Lab Data Labs: Lab Results 05/13/24 05/13/24 Range/Units 14:15 14:22 WBC 6.34 (4.50-11.00) K/uL RBC 4.60 (4.00-5.20) m/uL Hgb 13.9 (12.0-16.0) gm/dL Hct 42.3 (33.0-51.0) % MCV 92 (80-100) fL MCH 30 (26-34) pg MCHC 33 (32-36) gm/dL RDW Coeff of Jovon 12.8 (11.5-15.5) % Plt Count 210 (140-440) K/uL Neut % (Auto) 68.2 (42.0-72.0) % Lymph % (Auto) 22.9 (20-44) % [place] % (Auto) 6.8 (0.0-11.0) % Eos % (Auto) 1.6 (0.0-7.0) % Baso % (Auto) 0.5 (0.0-3.0) % Neut # (Auto) 4.33 (1.7-7.0) K/uL Lymph # (Auto) 1.45 (0.90-2.90) K/uL [place] # (Auto) 0.40 (0.00-0.90) K/UL Eos # (Auto) 0.10 (0.00-0.50) K/uL Baso # (Auto) 0.03 (0.00-0.30) K/uL Abs Immat Gran (auto) 0.00 (0.00-0.30) K/uL Imm/Tot Granulo (auto) 0.0 % INR 0.90 L (0.91-1.10) Sodium 137 (135-149) mmol/L Potassium 3.6 (3.6-5.1) mmol/L Chloride 102 (96-114) mmol/L Carbon Dioxide 26 (20-32) mmol/L Anion Gap 9 (7-15) mEq/L BUN 18 (7-30) mg/dL Creatinine 0.9 (0.5-1.5) mg/dL Estimated Creat Clear 48.58 Estimated GFR 70 ml/min Glucose 120 H (60-115) mg/dL Calcium 9.3 (8.4-10.6) mg/dL Troponin I < 0.01 L (0.01-0.04) ng/mL POC Creatinine 1.0 (0.6-1.3) mg/dl Imaging Data CT scan - head: Attestation: I have reviewed the pertinent imaging results. Radiologist's impression: FINDINGS: There is no acute infarct or intracranial hemorrhage. Ventricles are of normal caliber. No abnormal extra-axial fluid collection. No midline shift. Few nonspecific periventricular and deep white matter hypodensities are likely related to chronic microvascular ischemic changes. Skull base and calvarium: The visualized paranasal sinuses and mastoid air cells demonstrate no acute or significant findings. The visualized orbits are grossly unremarkable. No skull fractures. IMPRESSION: Chronic changes without acute intracranial abnormality. CTA head: Attestation: I have reviewed the pertinent imaging results. Radiologist's impression: Preliminary Report: No large vessel occlusion or significant focal stenosis of the intracranial and extracranial arteries. There is origin of left POST ANESTHESIA CARE UNIT NURSE. Right P1 POST ANESTHESIA CARE UNIT NURSE is hypoplastic, P2 segment is reinforced by posterior communicating artery. CTA neck: Attestation: I have reviewed the pertinent imaging results. Radiologist's impression: Preliminary Report: No large vessel occlusion or significant focal stenosis of the intracranial and extracranial arteries. There is origin of left POST ANESTHESIA CARE UNIT NURSE. Right P1 POST ANESTHESIA CARE UNIT NURSE is hypoplastic, P2 segment is reinforced by posterior communicating artery. Read by:?Evan Duarte MD @05/13/2024 3:20:47 MR brain: Attestation: I have reviewed the pertinent imaging results. Radiologist's impression: IMPRESSION: 1. No acute intracranial abnormality. 2. Mild chronic microvascular ischemic changes. Discharge Plan Discharge Clinical Impression: Expressive aphasia, Headache Instructions: Transient Ischemic Attack (ED) Additional Instructions: As we discussed, the cause of your symptoms that occurred today is not clear based on your workup so far. This may have been a transient ischemic attack (TIA) or may have been a migraine headache with an atypical migraine aura. It is very important for you to have further workup for possible TIA. Please follow-up with your regular primary care provider as soon as possible. Ask your primary care provider to do a TIA workup, which may include blood pressure monitoring, cholesterol check, outpatient monitoring specialist to screen for atrial fibrillation, and an outpatient echocardiogram. The CT scan of your carotid arteries, the MRI of your brain were done here in the ER today and they look good. Please start taking baby aspirin once every day-aspirin 81 mg by mouth daily. Your doctor will advise you when it is safe to stop taking aspirin. Remember, if you have any more episodes that affect your speech or any other new neurologic symptoms such as confusion, headache, numbness or weakness in her arms or legs, trouble walking, or any concerns, you should return to the ER immediately. Prescriptions: No Action triamcinolone acetonide 0.1 % cream 1 applic topical BID-TID tri-iodine 25 mg Rx Instructions: Takes 3-5 times weekly cholecalciferol (vitamin D3) 125 mcg (5,000 unit) capsule 125 mcg PO .COMPLEX Rx Instructions: Takes Sunday-Sunday, in summer decreases dose to 2000IU Sunday-Sunday pure genomics multivitamin .Route Rx Instructions: takes one tablet daily Sunday-Sunday digest gold w/ ATPro .Route Rx Instructions: Take one tablet with each meal as needed vitamin K2 45 mcg capsule 45 mcg PO QDAY Rx Instructions: Take with Vit D3, Sunday-Sunday peg 3350-electrolytes [Golytely] 236-22.74-6.74 -5.86 gram recon soln 240 ml PO Q10M Qty: 4000 0RF Rx Instructions: until fecal effluent is clear Follow Up/Referrals: Yolis Samayoa MD [Primary Care Provider] - Stand Alone Forms: [employer] Info Instructions
--- NOTE | 2024-05-13 14:04 | CRLHL7_ITS ---
For Patients: As a result of the Century Cures Act, medical imaging exams and procedure reports are released immediately into your electronic medical record. You may view this report before your referring provider. If you have questions, please contact your health care provider. INDICATION: Severe headache, aphasia. TECHNIQUE: CTA head with contrast bolus tracking, 3D angiographic rendering using maximum intensity projection (MIP) and images permanently archived. FINDINGS: There is normal opacification of the intracranial vasculature. There is no large vessel occlusion. No aneurysm is identified. IMPRESSION: Unremarkable head CTA. Please note that all CT scans at this facility use dose modulation, iterative reconstruction, and/or weight-based dosing when appropriate to reduce radiation dose to as low as reasonably achievable. Dictated by Silas Vickers MD @ 05/13/2024 3:35:20 PM (Electronically Signed)
--- NOTE | 2024-05-13 14:04 | CRLHL7_ITS ---
For Patients: As a result of the Century Cures Act, medical imaging exams and procedure reports are released immediately into your electronic medical record. You may view this report before your referring provider. If you have questions, please contact your health care provider. INDICATION: Severe headache, aphasia. TECHNIQUE: CTA neck with contrast bolus tracking, 3D angiographic rendering using maximum intensity projection (MIP) and images permanently archived. FINDINGS: There is no significant carotid artery stenosis or dissection. There is no significant vertebral artery stenosis or dissection. The soft tissues of the neck are within normal limits. The cervical spine is in normal alignment. Degenerative changes are noted in the cervical spine. IMPRESSION: Unremarkable neck CTA. No significant carotid or vertebral artery stenosis or dissection. Please note that all CT scans at this facility use dose modulation, iterative reconstruction, and/or weight-based dosing when appropriate to reduce radiation dose to as low as reasonably achievable. Dictated by Silas Vickers MD @ 05/13/2024 3:36:47 PM (Electronically Signed)
--- NOTE | 2024-05-13 14:04 | CT_ITS ---
Patient: HARMAN TREVINO Facility:?[facility] Patient ID:?[id number] Site Patient ID:?[id number]. Site :?[id number] Study:?CT-Head W/O-05/13/2024 3:06:16 PM Ordering Physician:Damian Eckert Final Report: INDICATION: Headache, aphasia. TECHNIQUE: CT head without contrast. COMPARISON: CT brain 02/13/2021. FINDINGS: There is no acute infarct or intracranial hemorrhage. Ventricles are of normal caliber. No abnormal extra-axial fluid collection. No midline shift. Few nonspecific periventricular and deep white matter hypodensities are likely related to chronic microvascular ischemic changes. Skull base and calvarium: The visualized paranasal sinuses and mastoid air cells demonstrate no acute or significant findings. The visualized orbits are grossly unremarkable. No skull fractures. IMPRESSION: Chronic changes without acute intracranial abnormality. Please note that all CT scans at this facility use dose modulation, iterative reconstruction, and/or weight-based dosing when appropriate to reduce radiation dose to as low as reasonably achievable. Dictated by Evan Duarte MD @ 05/13/2024 3:14:44 PM Signed by:?Evan Duarte MD @05/13/2024 3:14:44 PM (Electronic Signature)
--- NOTE | 2024-05-13 14:28 | CRLHL7_ITS ---
For Patients: As a result of the Cures Act, medical imaging exams and procedure reports are released immediately into your electronic medical record. You may view this report before your referring provider. If you have questions, please contact your health care provider. Indication Headache. Blurred vision. TECHNIQUE: Multiplanar multisequence MR imaging of the brain prior to and following intravenous contrast. COMPARISON: CT brain 05/13/2024. FINDINGS: Minimal diffuse cerebral volume loss. No mass effect or midline shift. Scattered FLAIR hyperintensities in the supratentorial white matter, typical for mild chronic microvascular ischemic changes. No intracranial hemorrhage or pathologic extra-axial fluid collection. No diffusion restriction to suggest acute infarction. No pathologic intracranial enhancement. The major arterial flow voids at the skull base are preserved. The globes are symmetric. Mild paranasal sinus mucosal thickening. Minimal mastoid fluid bilaterally. IMPRESSION: 1. No acute intracranial abnormality. 2. Mild chronic microvascular ischemic changes. Dictated by Ryan Bailey MD @ 05/13/2024 5:37:11 PM (Electronically Signed)
[2024-05-13 14:30] LABS: Basophils Absolute Auto 0.03 K/uL (0.00-0.30); Basophils Percent Auto 0.5 % (0.0-3.0); Eosinophils Percent Auto 1.6 % (0.0-7.0); Hematocrit 42.3 % (33.0-51.0); Hemoglobin* 13.9 gm/dL (12.0-16.0); Lymphocytes Absolute Auto 1.45 K/uL (0.90-2.90); Lymphocytes Percent Auto 22.9 % (20-44); Mean Corpuscular HGB Conc 33 gm/dL (32-36); Mean Corpuscular Hemoglobin 30 pg (26-34); Mean Corpuscular Volume 92 fL (80-100); Monocytes Percent Auto 6.8 % (0.0-11.0); Neutrophils Absolute Auto 4.33 K/uL (1.7-7.0); Neutrophils Percent Auto 68.2 % (42.0-72.0); Platelet Count* 210 K/uL (140-440); RDW Coefficient of Variation % 12.8 % (11.5-15.5); White Blood Count* 6.34 K/uL (4.50-11.00)
[2024-05-13] MEDS: KETOROLAC 15 MG/ML inj IVP (14:36)
[2024-05-13 14:43] LABS: Slide Review Reflex No
[2024-05-13 14:44] LABS: Chloride* 102 mmol/L (96-114); Potassium* 3.6 mmol/L (3.6-5.1); Sodium* 137 mmol/L (135-149)
[2024-05-13 14:46] LABS: Prothrombin Time 12.7 Seconds
[2024-05-13 14:47] LABS: Anion Gap 9 mEq/L (7-15); Carbon Dioxide* 26 mmol/L (20-32); Creatinine* 0.9 mg/dL (0.5-1.5); Est. Creatinine Clearance* 48.58; Estimated Glomerular Filt Rate 70 ml/min
[2024-05-13 14:48] LABS: Blood Urea Nitrogen* 18 mg/dL (7-30); Calcium* 9.3 mg/dL (8.4-10.6); Glucose* 120 mg/dL (60-115)
[2024-05-13 15:24] LABS: Troponin I* < 0.01 ng/mL (0.01-0.04)
[2024-05-13 16:22] VITALS: BP 135/78; PULSE 70; RESP 16; O2SAT 96
== END 2024-05-13 19:30 | disposition home or self-care (01) ==
PROVIDERS: Emergency Provider Emergency Medicine; PCP Family Medicine
DX: R51.9 Headache, unspecified (principal); R47.01 Aphasia
CPT/HCPCS: 36415; 70450; 70496; 70498; 70553; 80048; 82565; 84484; 85025; 85610; 93005; 96374; 99284; 99285; A9575; J1885; Q9967

== ENCOUNTER 2024-05-15 13:55 | Outpatient (CLI) | payer MEDICARE, SELFPAY ==
--- OUTSIDE RECORDS SUMMARY | 2024-05-15 14:00 | XMS_ITS | Clinical Summary ---
Author Organization [facility] Address [place], [place] [address] Care Team Providers Care Assistant Farm Operations Manager Name Role Phone Yolis Samayoa MD Primary Care Provider + Allergies Active Allergy Reactions Criticality Noted Date Comments Adhesive Tape-Silicones Rash Low 09/25/2023 Dust Mites Runny Nose Formaldehyde Runny Nose Milk Stomach Upset Mold Headache Stock Ragweed Pollen Mixture Sedation Medications Medication Sig Dispensed Refills Start Date End Date Status medication order composer Allergy drops (made from serum ) places one drop three times daily for inhalant allergies 0 12/10/2014 Active Lactobacillus acidophilus (PROBIOTIC) 10 billion cell cap Take by mouth. 0 10/24/2017 Acti ve medication order composer Calm ease 0 10/24/2017 Active medication order composer 500mg Biotics Research NAC Pure encapsulations 1 capsule liposomal glutathione 1 capsule D'Sandra Personalized Nutrition Right for your Type A Lectin blocking formula Deflect Jarrow Formulas Glucosamine & Chondroitin & MSM 1or 2 capsules (serving size 4) Energy Blueprint Longenesis 1-2 tablets (serving size 6) incl. Quercetin, zeaxanthin, lutein, glucosamine sulfate... Dr. Elder H2 5 mg melatonin bed 09/25/2023 Active medication order composer once daily. Brain MD- Brain and Body support. Comprehensive multivitamin. 5 capsules daily. Active medication order composer once daily. Vitamin D3 Vitamin K2 Selenium 200 mg Tri-Iodine Energenesis - Mitochondiral Energy Enhancer Active Active Problems Problem Noted Date Diagnosed Date Sensorineural hearing loss of both ears 04/03/20 18 Dyspareunia 12/13/2014 Overview (12/13/2014): Resolved with estrogen suppository Allergic rhinitis 12/13/2014 Encounters Date Type Department Care Team Description 05/13/2024 Office Visit [facility] [address] [place] [address] Treat, Sara May DO Telehealth (TS consult ) from Last 3 Months Immunizations Name Administration Dates Next Due Tdap 07/14/2010 Family History Medical History Relation Name Comments Hypertension Father Cancer-breast Maternal Aunt Deborah 80+yr Diabetes Maternal Uncle Musa 70+ Hypertension Mother Cancer-colon No Family History Cancer-ovarian No Family History Cancer-prostate No Family History Relation Name Status Comments Father Alive Maternal Aunt Deborah Maternal Uncle Musa Mother Alive Social History Tobacco Use Types Packs/Day Years Used Date Smoking Tobacco: Never Smokeless Tobacco: Never Tobacco Cessation:Counseling Given: Not Answered Alcohol Use Standard Drinks/Week Comments Not Currently 0 (1 standard drink = 0.6 oz pure alcohol) was less than 1/mo... since cancer diagnosis none PHQ-2 Answer Date Recorded PHQ-2 Score 0 09/17/2018 Social Connections Answer Date Recorded Do you often feel lonely or isolated from those around you? 0 09/24/2023 Financial Resource Strain Answer Date R ecorded Difficulty of Paying Living Expenses 3 09/25/2023 Difficulty of Paying Living Expenses Not on file 09/25/2023 Food Insecurity Answer Date Recorded Do you worry your food will run out before you are able to buy more? 1 09/24/2023 Transportation Needs Answer Date Record ed Does lack of transportation keep you from medica l appointments? 1 09/24/2023 Does lack of transportation keep you from work, meetings or getting things that you need? 1 09/24/2023 Housing Stability Answer Date Recorded What is your housing situation today? 1 09/24/2023 Sex and Gender Information Value Date Recorded Sex Assigned at Not on file Gender Identity Not on file Sexual Orientation Not on file Obstetrics History Last Filed Vital Signs Vital Sign Reading Time Taken Comments Blood Pressure 137/73 11/27/2023 10:28 AM CDT Pulse 66 11/27/2023 10:28 AM CDT Temperature 36.8 ??C (98.2 ??F) 11/27/2023 1 0:28 AM CDT Respiratory Rate 16 11/27/2023 10:2 8 AM CDT Oxygen Saturation 99% 11/27/2023 10: 28 AM CDT Inhaled Oxygen Concentration - - Weight 61.2 kg (134 lb 14.4 oz) 024 10:28 AM CDT Height 148 cm (4' 10.25) 11/27/2023 10 :28 AM CDT Body Mass Index 27.95 11/27/2023 10:28 AM CDT Plan of Treatment Health Maintenance Due Date Last Done Comments Hepatitis C screening for ag e 18-79 02/28/1974 Colonoscopy through age 75 02/28/2001 Zoster (shingles) series for age 50+ (1 of 2) 02/28/2006 Depression screening for age 12+ 10/24/2018 10/25/19 18, 07/17/2016 Mammogram for age 45-75 12/28/2019 12/28/19 19, 05/01/2017, 10/14/2013 (Completed outside of [facility]) Tetanus booster 07/14/2020 07/14/2010 DEXA/DXA scan for age 65+ 02/28/2021 Medicare Wellness for age 65+ 02/28/2021 Pneumococcal series for age 65+ (1 of 1 - PCV) 02/28/2021 Lipids for age 45-75 07/21/2021 07/21/2016 COVID-19 vaccine series (3 - season) 2024 10/21/2020, 09/23/2020 Influenza for age 65+ 03/16/2024 BMI (ht and wt on same day) for age 18+ 11/26/2024 11/27/2023, 05/18/2017, 02/01/2017, Additional history exists Tdap Completed 07/14/2010 Procedures Procedure Name Priority Date/Time Associated Diagnosis Comments SCAN-MAMMOGRAPHY REPORT 12/27/2018 12:00 AM CDT LIPID PANEL W REFLEX MEASURED LDL Routine 07/21/2016 Lipid screening from Last 3 Months or Most Recently Relevant to Health Maintenance Results * SCAN-MAMMOGRAPHY REPORT (12/27/2018 12:00 AM CDT) Anatomical Region Laterality Modality Other Scanner OTHER * LIPID PANEL W REFLEX MEASURED LDL (07/21/2016) LDL CHOLESTEROL 73 mg/dL HDL CHOLESTEROL 78 mg/dL TOTAL 163 % TRIGLYCERIDES 62 MG/DL Blood BLOOD SPECIMEN / Unknown 07/21/2016 Rosemary Leonard DO CHEMISTRY from Last 3 Months or Most Recently Relevant to Health Maintenance Care Teams Assistant Farm Operations Manager Relationship Specialty Start Date End Date Yolis Samayoa MD [address] [facility] [place] [id number] PCP - General Family Practice 10/15/23
--- OUTSIDE RECORDS SUMMARY | 2024-05-15 14:01 | XMS_ITS | Referral Summary ---
Author Organization [facility] Address [address] [place] [address] Care Team Providers Care Classer Name Role Phone Unavailable Primary Care Provider Unavailabl e Source Comments Patient records contain information from all sites at [facility]. For routine questions regarding patient records, call [phone] during business hours, M-F 8:00 AM - 5:00 PM Central Time. Record requests for emergency care only can be directed to [phone] at any time.[facility] Allergies No known active allergies Medications cholecalciferol 10 mcg (400 Unit) tablet Take 10 mcg by mouth daily. Active selenium 50 mcg tablet Take 50 mcg by mouth daily. Active IODINE MISC Active multivitamin tablet Take 1 tablet by mouth daily. Active mometasone (ELOCON) 0.1 % cream Apply 1 Application topically 2 (two) times a day. Apply to skin of right breast twice daily starting the first day of radiation and continue it for 2 weeks after radiation has finished. 45 g 4 Active Active Problems Problem Noted Date Diagnosed Date Malignant Neoplasm Of Overla pping Sites Of Right Female Breast 08/27/2023 Cancer Staging:Clinical stage from 08/16/2023:Stage IA(cT1c, cN0, cM0, G2, ER+, PA+, HER2-) - Unsigned Pathologic stage from 09/13/2023:Stage IA(pT1c, pN0, cM0, G2, ER+, PA+, HER2-, Oncotype DX score: 15) - Unsigned Immunizations Name Administration Dates Next Due Influenza, Unspecified 07/03/2007 Tdap 07/14/2010 Social History Tobacco Use Types Packs/Day Years Used Date Smoking Tobacco: Never Smokeless Tobacco: Never Tobacco Cessation:Counseling Given: Not Answered Alcohol Use Standard Drinks/Week Comments Yes 0 (1 standard drink = 0.6 oz pur e alcohol) [facility] Utilities Answer Date Recorded In the past 12 months has e electric, gas, oil, or water company threatened to shut off services in your home? No 08/28/2023 Exercise Vital Sign Answer Date Recorde d On average, how many days pe r week do you engage in moderate to strenuous exercise (like a brisk walk)? 1 day 08/28/2023 On average, how many minutes do you engage in exercise at this level? 40 min 08/28/2023 Hunger Vital Sign Answer Date Recorded Within the past 12 months, y ou worried that your food would run out before you got the money to buy more. Never true 08/28/19 Within the past 12 months, t he food you bought just didn't last and you didn't have money to get more. Never true 08/28/2023 PRAPARE - Transportation Answer Date Re corded In the past 12 months, has l ack of transportation kept you from medical appointments or from getting medications? No 08/16 In the past 12 months, has l ack of transportation kept you from meetings, work, or from getting things needed for daily living? No 08/28/2023 Nutrition Answer Date Recorded On average, how many serving s of fruits and vegetables do you eat per day (serving size is equal to 1 cup or approximately the size of a tennis ball)? 3-5 08/28/2023 Dental Answer Date Recorded Dental: Regular Dentist Unknown 08/21/19 Employment Answer Date Recorded Employment status Retired 08/28/2023 Housing Stability Answer Date Recorded What is your living situation today? I have a [facility] place to live 08/28/2023 Comments Unknown Sex and Gender Information Value Date Recorded Sex Assigned at Female 08/28/2023 5:41 PM VEHICLE MAINTENANCE SUPERVISOR Legal Sex Female 10:20 PM VEHICLE MAINTENANCE SUPERVISOR Gender Identity Female 08/28/2023 5:41 PM VEHICLE MAINTENANCE SUPERVISOR Sexual Orientation Straight 08/28/2023 5: 41 PM VEHICLE MAINTENANCE SUPERVISOR Last Filed Vital Signs Vital Sign Reading Time Taken Comments Blood Pressure 135/67 10/11/2023 1:51 PM CDT Pulse 76 10/11/2023 1:51 PM CDT Temperature 36.7 ??C (98 ??F) 10/30/2023 9:22 AM CDT Respiratory Rate - - Oxygen Saturation - - Inhaled Oxygen Concentration - - Weight 60.8 kg (134 lb 0.6 oz) 10/30/2023 9:22 A M CDT Height - - Body Mass Index - - Plan of Treatment Not on file Procedures Procedure Name Priority Date/Time Associated Diagnosis Comments OUTSIDE MG MAMMOGRAM Routine 08/16/2023 10:50 AM VEHICLE MAINTENANCE SUPERVISOR from Last 3 Months or Most Recently Relevant to Health Maintenance Results * MM clip placement RT-Outside Mammogram (08/16/2023 10:50 AM VEHICLE MAINTENANCE SUPERVISOR) Narrative IIMS - 08/21/2023 3:20 PM VEHICLE MAINTENANCE SUPERVISOR This order has been created and auto-finalized to support the import of outside images. If available, original interpretation can be found on the Media Tab in Chart Review, in Document Viewer, or as an image in QREADS. If a re-interpretation or overread is required please follow defined workflow. ?? us Provider Not In System IMG BI PROCEDURES Final R esult IIMS NA from Last 3 Months or Most Recently Relevant to Health [place] [address] [place] [id number] MEDICARE [facility]
--- OUTSIDE RECORDS SUMMARY | 2024-05-15 14:01 | XMS_ITS | Clinical Summary ---
Author Organization [facility] Address [address] [place] [address] Care Team Providers Care Harvester Operator Name Role Phone Unavailable Primary Care Provider Unavailabl e Source Comments Patient records contain information from all sites at [facility]. For routine questions regarding patient records, call [phone] during business hours, M-F 8:00 AM - 5:00 PM Central Time. Record requests for emergency care only can be directed to [phone] at any time.[facility] Allergies No known active allergies Medications cholecalciferol [...] from 08/16/2023:Stage IA(cT1c, cN0, cM0, G2, ER+, IA+, HER2-) - Unsigned Pathologic stage from 09/13/2023:Stage IA(pT1c, pN0, cM0, G2, ER+, IA+, HER2-, Oncotype DX score: 15) - Unsigned Immunizations Name Administration Dates Next Due Influenza, Unspecified 07/03/2007 Tdap 07/14/2010 Family History Medical History Relation Name Comments Breast cancer Aunt Bladder cancer Father Coronary artery disease Father Stomach cancer Maternal Grandmother Stroke Paternal Grandfather Ovarian cancer Neg Hx Relation Name Status Comments Aunt Father Maternal Grandmother Paternal Grandfather Social History Tobacco Use Types Packs/Day Years Used Date Smoking Tobacco: Never Smokeless Tobacco: Never Tobacco Cessation:Counseling Given: Not Answered Alcohol Use Standard Drinks/Week Comments Yes 0 (1 standard drink = 0.6 oz pur e alcohol) [facility] Utilities Answer Date Recorded In the past 12 months has th e electric, gas, oil, or water company [...] your living situation today? I have a [facility] place to live 08/28/2023 Comments Unknown Sex and Gender Information Value Date Recorded Sex Assigned at Female 08/28/2023 5:41 PM INTERNATIONAL SOURCING MANAGER Legal Sex Female 10:20 PM INTERNATIONAL SOURCING MANAGER Gender Identity Female 08/28/2023 5:41 PM INTERNATIONAL SOURCING MANAGER Sexual Orientation Straight 08/28/2023 5: 41 PM INTERNATIONAL SOURCING MANAGER Last Filed Vital Signs Vital Sign Reading [...] Mass Index - - Plan of Treatment Health Maintenance Due Date Last Done Comments Bone Density Scan (Osteoporosis Screen) 1955 CT Colonography 1955 Cologuard 1955 Fasting Glucose for Diabetes Screening 1955 Hepatitis C Screening 1955 Pneumococcal vaccine (65+ years) (1 of 2 - PCV) 02/28/1962 Zoster Vaccines (1 of 2) 02/28/1975 Colonoscopy 03/30/2017 03/30/2012 Colorectal Cancer Surveillance 03/30/2017 COVID-19 Vaccine (3 - Moderna risk series) 11/18/2020 10/21/2020, 09/23/2020 Depression Screening (Annual PHQ-2) 07/16/2023 Fall Risk Screen (Annual) 07/16/2023 Influenza Vaccine (#1) 2024 07/03/2007 Mammogram 08/16/2024 08/16/2023, 07/17, 07/30/2023, Additional history exists DTaP,Tdap,and Td Vaccines (4 - Td or Tdap) 02/16/2030 02/17/2020, 02/14/2020, 07/14/2010 HPV Vaccines Aged Out No longer eligi ble based on patient's age to complete this topic IPV Vaccines Aged Out No longer eligi ble based on patient's age to complete this topic Procedures Procedure Name Priority Date/Time Associated Diagnosis Comments OUTSIDE MG MAMMOGRAM Routine 08/16/2023 10:50 AM INTERNATIONAL SOURCING MANAGER from Last 3 Months or Most Recently Relevant to Health Maintenance Results * MM clip placement RT-Outside Mammogram (08/16/2023 10:50 AM INTERNATIONAL SOURCING MANAGER) Narrative IIM[facility] - 08/21/2023 3:20 PM INTERNATIONAL SOURCING MANAGER This order has been created and auto-finalized [...] Relevant to Health [place] [address] MEDICARE [facility]
--- OUTSIDE RECORDS SUMMARY | 2024-05-15 14:01 | XMS_ITS ---
Author Organization [facility] Address [address] [place] [address] Care Team Providers Care Service Girl Name Role Phone Unavailable Unavailable Unavailable Surgery Details Not on file Complications Check Surgery Details section. Procedure Estimated Blood Loss Check Surgery Details section. Procedure Findings Check Surgery Details section. Procedure Specimens Taken Check Surgery Details section.
--- OUTSIDE RECORDS SUMMARY | 2024-05-15 14:01 | XMS_ITS ---
Author Organization [facility] Address [address] [place] [address] Care Team Providers Care Surgical Scrub Technician Name Role Phone Unavailable Primary Care Provider Unavailabl e Active Problems Problem Noted Date Diagnosed Date Malignant Neoplasm Of Overla pping Sites Of Right Female Breast 08/27/2023 Cancer Staging:Clinical stage from 08/16/2023:Stage IA(cT1c, cN0, cM0, G2, ER+, [place]+, HER2-) - Unsigned Pathologic stage from 09/13/2023:Stage IA(pT1c, pN0, cM0, G2, ER+, [place]+, HER2-, Oncotype DX score: 15) - Unsigned Current Oncology Plans No current plan information found. Past Plans No past plan information found. Radiation Treatments * Plan Last Treated On Elapsed Days Fractions Treated Prescribed Fraction Dose Prescribed Total Dose [id number] 11/02/2023 4 5 of 5 520 cGy 2,600 cGy Reference Point Last Treated On Elapsed Days Session Dose Total Dose [id number] 11/02/2023 4 520 cGy 2,600 cGy
== END 2024-05-15 13:56 | disposition home or self-care (01) ==
LOC: NFLDREF 13:56
PROVIDERS: PCP Family Medicine; Visit Provider Family Medicine
DX: Z13.6 Encounter for screening for cardiovascular disorders (principal)
CPT/HCPCS: 80061

== ENCOUNTER 2024-05-21 14:30 | Outpatient (RCR) | payer MEDICARE, SELFPAY ==
--- NOTE | 2024-02-14 18:40 | OT.OPOE ---
OT Outpatient Ortho Eval OT Outpatient Ortho Eval* Start: 02/14/24 18:22 Freq: Status: Active Protocol: Document 02/14/24 18:22 AMB (Rec: 02/14/24 18:37 AMB [id number]) E-signed By Michaela Castaneda, OTR/L, CLT, EDGE STITCHER OT OP Ortho Eval Details Complexity Complexity Low Insurance Information Insurance Information Medicare B Insurance Information Comments Cert Due on 05/14/24 Outpatient History/Precautions Current Condition/Medical Diagnosis Referring Provider Ezequiel Ontiveros PA-C Medical Diagnoses Z98.890 TF release Treatment Diagnosis R53.1 Weakness RUE hand Date of Onset 01/28/24 Other Conditions PMH (copied form ortho chart): Status post trigger finger release (Acute 01/28/24) 11 days postop right ring finger flexor tendon sheath open release (A1 angela) Z98.890 - Other specified postprocedural states (ICD-10) Stiffness of finger joint of right hand (Acute) right ring finger PIP joint M25.641 - Stiffness of right hand, not elsewhere classified (ICD-10) Trigger ring finger of right hand (Acute) M65.341 - Trigger finger, right ring finger (ICD-10) Superficial bruising of lower leg (Acute) S80.10XA - Contusion of unspecified lower leg, initial encounter (ICD-10) Rash (Acute) R21 - Rash and other nonspecific skin eruption (ICD -10) Invasive ductal carcinoma of right breast (Acute 08/2023) C50.911 - Malignant neoplasm of unspecified site of right female breast (ICD-10) Osteoarthritis of right knee ( Acute) M17.11 - Unilateral primary osteoarthritis, right knee ( ICD-10) Chondrocalcinosis of right knee (Acute) M11.261 - Other chondrocalcinosis, right knee (ICD-10) Lymphocytic colitis (Chronic) K52.832 - Lymphocytic colitis (ICD-10) Squamous cell carcinoma of skin of face (Resolved 06/2021 ) C44.320 - Squamous cell carcinoma of skin of unspecified parts of face (ICD -10) Sensorineural hearing loss ( SNHL) (Chronic) Mild to Moderate. H90.5 - Unspecified sensorineural hearing loss ( ICD-10) Obstructive sleep apnea syndrome (Chronic) Does not use CPAP. Supine position G47.33 - Obstructive sleep apnea (adult) (pediatric) (ICD -10) History of adenomatous polyp of colon (Acute 01/13/19) 01/13/19 7mm tubular adenoma. Next 2023. Z86.010 - Personal history of colonic polyps (ICD-10) Allergic rhinitis (Chronic 29/06) J30.9 - Allergic rhinitis, unspecified (ICD-10) Medical History (Reviewed @ 09:33 by Izzy Hinton) Trigger finger, left middle finger M65.332 - Trigger finger, left middle finger (ICD-10) Lymphocytic colitis K52.832 - Lymphocytic colitis (ICD-10) Squamous cell carcinoma of skin of face (06/2021) C44.320 - Squamous cell carcinoma of skin of unspecified parts of face (ICD -10) Sensorineural hearing loss ( SNHL) H90.5 - Unspecified sensorineural hearing loss ( ICD-10) Obstructive sleep apnea syndrome G47.33 - Obstructive sleep apnea (adult) (pediatric) (ICD -10) History of adenomatous polyp of colon (01/13/19) Z86.010 - Personal history of colonic polyps (ICD-10) Allergic rhinitis (10/29/11) J30.9 - Allergic rhinitis, unspecified (ICD-10) Surgical History (Reviewed @ 09:33 by Izzy Hinton) Hx of local excision of skin lesion (~2019) Z98.890 - Other specified postprocedural states (ICD-10) S/P right knee arthroscopy () Z98.890 - Other specified postprocedural states (ICD-10) History of colposcopy with cervical biopsy (1997) Z98.890 - Other specified postprocedural states (ICD-10) Breast Cancer with lumpectomy / SLNB Medications (copied from ortho chart): cholecalciferol (vitamin D3) Takes Sunday-Sunday, in summer decreases dose to 2000IU Sunday-Sunday [digest gold w/ ATPro Take one tablet with each meal as needed] peg 3350-electrolytes 236-22. 74-6.74 -5.86 gram (Golytely) 240 mL PO Q10M [pure genomics multivitamin takes one tablet daily Sunday- Sunday] [tri-iodine Takes 3-5 times weekly] triamcinolone acetonide 0.1% 1 applic topical BID-TID vitamin K2 45 mcg PO QDAY Medical/Functional History Medical History Reviewed Yes Prior Level of Function/Mobility Full, pain-free use of RUE prior to onset of TF Social History Employment Status Retired Hobbies Traveling Ortho Subjective Subjective Subjective Pt feels she is doing ok but bothered by her lack of ability to straighten her RF, also limited in full composite flexion. Pt states this makes it difficult to type, write, use utensils, etc. Pt states her pain has not been terrible, rates at 1/10, aching, sometimes sharp, not constant. Pt states her finger is really tight in the morning, cannot straighten it very far, concerned that this will continue to get tight. Goniometric Comments Goniometric Comments Goniometric Comments 02/14/24 AROM of the RUE is WNL throughout with the exception of the RF. AROM of the RUE RF MPJ is 0-80, PIP is -20-100, DIP is 0-70. Hand Pinch/Metal Technician Strength Hand Pinch/Metal Technician Strength Hand Pinch/Metal Technician Strength Left Hand,Right Hand Left Hand Metal Technician Strength Position 1 in Elbow 50 Flexion (lbs) Lateral Pinch Strength (lbs) 14 Three Point Pinch (lbs) 10 Right Hand Metal Technician Strength Position 1 in Elbow 52 Flexion (lbs) Lateral Pinch Strength (lbs) 15 Three Point Pinch (lbs) 10 OT Problems Problems Problems Decreased Strength,Decreased Range of Motion,Decreased Dexterity,Pain,Decreased Coordination,Sensory Sensitivity,Lifting,Gripping, Pinching Other Problems Writing,Opening Containers, Computer Patient Potential Good Assessment Assessment Assessment Pt is a very pleasant 68yo referred to OT to address pain , weakness, and limited AROM in her RUE following RF TF release. Pt reports having difficulty with writing, typing, opening containers, gripping and carrying items, and is quite concerned about the fact that she cannot straighten her finger. Pt will benefit from skilled OT intervention to address impairments and restore full, pian-free use of her RUE. Occupational Therapy Treatment Plan - OP Potential Rehabilitation Potential Good Set Goals Goals Set with Patient Yes Goals Goals 1. Pt will be independent and compliant with HEP in order to resume full, pain-free use of the involved UE. 3 weeks 2. Pt will demonstrate full, pain-free AROM of the involved UE in order to improve ability to grasp and hold. 6 weeks 3. Pt will demonstrate pain- free analyst competitive intelligence and pinch strength comparable to the uninvolved side in order to improve functional grasp, hold, reach, and lifting ability needed to complete self-care, leisure tasks, and work activities. 8 weeks. Treatment Plan Treatment Plan Evaluation,Joint Mobilization, Manual Therapy,Splinting, Ultrasound,Wound Care/Scar Management,Therapeutic Exercise,Therapeutic Activities,Self Care/Home Management,Education Expected Frequency 1-2x Week Expected Duration 6-8 Weeks Home Program Home Program Home Program Initiated Home Program Specifics Pt was provided training and practice in HEP for differential tendon glides and AAROM with emphasis on PIP extension and composite finger flexion. She was given inst for use at home as well. Certification Certification Statement I Certify That: Therapy Services Provided, Therapy Plan Established, Therapy Plan Reviewed Certification Information Clinic ID # [id number] Initial Certification Date 02/14/24 Recertification Due Date 05/14/24 Provider Signature Required Yes Provider Signature Shows Agreement With POC & Medical Necessity Physician NPI Number Write NPI# Here Physician Comment/Change Comment or Changes Physician Signature & Date Requested Please Sign/Date Here
--- NOTE | 2024-05-14 17:51 | OT.OPODN ---
OT Outpatient Ortho Daily Note OT Outpatient Ortho Daily Note* Start: 02/14/24 18:22 Freq: Status: Discharge Protocol: Document 05/21/24 14:28 AMB (Rec: 05/21/24 17:13 AMB [id number]) E-signed By Michaela Castaneda, OTR/L, CLT, FILTER WASHER Type of Note Type of Note Type of Note Daily Note,Discharge Note Visit Number 5 Insurance Information Insurance Information Medicare B Insurance Information Comments Cert Due on 05/14/24 Outpatient History/Precautions Current Condition/Medical Diagnosis Referring Provider Ezequiel Ontiveros PA-C Medical Diagnoses Z98.890 TF release Treatment Diagnosis R53.1 Weakness RUE hand Date of Onset 01/28/24 Other Conditions PMH (copied form ortho chart): Status post trigger finger release (Acute 01/28/24) 11 days postop right ring finger flexor tendon sheath open release (A1 angela) Z98.890 - Other specified postprocedural states (ICD-10) Stiffness of finger joint of right hand (Acute) right ring finger PIP joint M25.641 - Stiffness of right hand, not elsewhere classified (ICD-10) Trigger ring finger of right hand (Acute) M65.341 - Trigger finger, right ring finger (ICD-10) Superficial bruising of lower leg (Acute) S80.10XA - Contusion of unspecified lower leg, initial encounter (ICD-10) Rash (Acute) R21 - Rash and other nonspecific skin eruption (ICD -10) Invasive ductal carcinoma of right breast (Acute 08/2023) C50.911 - Malignant neoplasm of unspecified site of right female breast (ICD-10) Osteoarthritis of right knee ( Acute) M17.11 - Unilateral primary osteoarthritis, right knee ( ICD-10) Chondrocalcinosis of right knee (Acute) M11.261 - Other chondrocalcinosis, right knee (ICD-10) Lymphocytic colitis (Chronic) K52.832 - Lymphocytic colitis (ICD-10) Squamous cell carcinoma of skin of face (Resolved 06/2021 ) C44.320 - Squamous cell carcinoma of skin of unspecified parts of face (ICD -10) Sensorineural hearing loss ( SNHL) (Chronic) Mild to Moderate. H90.5 - Unspecified sensorineural hearing loss ( ICD-10) Obstructive sleep apnea syndrome (Chronic) Does not use CPAP. Supine position G47.33 - Obstructive sleep apnea (adult) (pediatric) (ICD -10) History of adenomatous polyp of colon (Acute 01/13/19) 01/13/19 7mm tubular adenoma. Next 2023. Z86.010 - Personal history of colonic polyps (ICD-10) Allergic rhinitis (Chronic 29/06) J30.9 - Allergic rhinitis, unspecified (ICD-10) Medical History (Reviewed @ 09:33 by Izzy Hinton) Trigger finger, left middle finger M65.332 - Trigger finger, left middle finger (ICD-10) Lymphocytic colitis K52.832 - Lymphocytic colitis (ICD-10) Squamous cell carcinoma of skin of face (06/2021) C44.320 - Squamous cell carcinoma of skin of unspecified parts of face (ICD -10) Sensorineural hearing loss ( SNHL) H90.5 - Unspecified sensorineural hearing loss ( ICD-10) Obstructive sleep apnea syndrome G47.33 - Obstructive sleep apnea (adult) (pediatric) (ICD -10) History of adenomatous polyp of colon (01/13/19) Z86.010 - Personal history of colonic polyps (ICD-10) Allergic rhinitis (10/29/11) J30.9 - Allergic rhinitis, unspecified (ICD-10) Surgical History (Reviewed @ 09:33 by Izzy Hinton) Hx of local excision of skin lesion (~2019) Z98.890 - Other specified postprocedural states (ICD-10) S/P right knee arthroscopy () Z98.890 - Other specified postprocedural states (ICD-10) History of colposcopy with cervical biopsy (1997) Z98.890 - Other specified postprocedural states (ICD-10) Breast Cancer with lumpectomy / SLNB Medications (copied from ortho chart): cholecalciferol (vitamin D3) Takes Sunday-Sunday, in summer decreases dose to 2000IU Sunday-Sunday [digest gold w/ ATPro Take one tablet with each meal as needed] peg 3350-electrolytes 236-22. 74-6.74 -5.86 gram (Golytely) 240 mL PO Q10M [pure genomics multivitamin takes one tablet daily Sunday- Sunday] [tri-iodine Takes 3-5 times weekly] triamcinolone acetonide 0.1% 1 applic topical BID-TID vitamin K2 45 mcg PO QDAY Medical/Functional History Medical History Reviewed Yes Prior Level of Function/Mobility Full, pain-free use of RUE prior to onset of TF Social History Employment Status Retired Hobbies Traveling Ortho Subjective Subjective Subjective Pt feels she is doing well, ready to discharge to independent program. Finger has been straight, and it takes less time to get it straight, also stays straight longer. OT OP Daily Ortho Note/Assessment Therapeutic Activity Therapeutic Activity Minutes (minutes) 5 Therapeutic Activity Comments Re-assessment of ROM, strength and home program. Manual Therapy Manual Therapy Minutes (minutes) 13 Manual Therapy Comments Provided MT with focus on STM / edema reduction of the RUE hand, especially RF this was followed by AAROM of the RUE RF for isolated joint flexion followed by composite finger flexion with LLPS to improve joint mobility / ROM. Utilized Graston tool to provided IASTM / scar tissue mobilization to right palm. Ultrasound Ultrasound Minutes (minutes) 10 Ultrasound Location & Joint Position RUE RF and palm for anti- inflammatory and circulatory benefit. Ultrasound Frequency & Mode 1 MHz Pulsed Intensity (w/cm2) 1.5 Total Occupational Therapy Time Occupational Therapy Minutes 28 Goniometric Comments Goniometric Comments Goniometric Comments 05/21/24 Pt now demonstrates full extension of RUE RF after minimal stretch. 02/14/24 AROM of the RUE is WNL throughout with the exception of the RF. AROM of the RUE RF MPJ is 0-80, PIP is -20-100, DIP is 0-70. Hand Pinch/Polyethylene Combiner Strength Hand Pinch/Polyethylene Combiner Strength Hand Pinch/Polyethylene Combiner Strength Left Hand,Right Hand Left Hand Polyethylene Combiner Strength Position 1 in Elbow 54 Flexion (lbs) Lateral Pinch Strength (lbs) 15 Three Point Pinch (lbs) 14 Right Hand Polyethylene Combiner Strength Position 1 in Elbow 54 Flexion (lbs) Lateral Pinch Strength (lbs) 15 Three Point Pinch (lbs) 13 Comments Comments Polyethylene Combiner and pinch strength have stabilized. OT Problems Problems Problems Decreased Strength,Decreased Range of Motion,Decreased Dexterity,Pain,Decreased Coordination,Sensory Sensitivity,Lifting,Gripping, Pinching Other Problems Writing,Opening Containers, Computer Patient Potential Good Assessment Assessment Assessment Pt now demonstrates full AROM and strength in RUE hand, pt no longer feels limited in her ability to use her LUE. Pt still concerned about the bump in the palm of her hand, seems like it may be related to Dupuytren's or possibly a ganglion cyst? Pt will continue to monitor and see MD if changes occur. Pt is otherwise pleased with her progress. Occupational Therapy Treatment Plan - OP Potential Rehabilitation Potential Good Set Goals Goals Set with Patient Yes Goals Goals 05/21/24 All Goals have been met 1. Pt will be independent and compliant with HEP in order to resume full, pain-free use of the involved UE. 3 weeks 2. Pt will demonstrate full, pain-free AROM of the involved UE in order to improve ability to grasp and hold. 6 weeks 3. Pt will demonstrate pain- free plastics fabricator or welder and pinch strength comparable to the uninvolved side in order to improve functional grasp, hold, reach, and lifting ability needed to complete self-care, leisure tasks, and work activities. 8 weeks. Treatment Plan Treatment Plan Evaluation,Joint Mobilization, Manual Therapy,Splinting, Ultrasound,Wound Care/Scar Management,Therapeutic Exercise,Therapeutic Activities,Self Care/Home Management,Education Expected Frequency 1-2x Week Expected Duration 6-8 Weeks Occupational Therapy Billing Units Treatment Minutes Timed Treatment Minutes 28 Total Treatment Minutes 28 Billing Units Manual Therapy 1 Ultrasound 1 Certification Statement Certification Statement I Certify That: Therapy Services Provided, Therapy Plan Established, Therapy Plan Reviewed Discharge Note Discharge Note Discharge Summary Pt has been seen a total of 5 visits since her initial evaluation on 02/14/24. Pt has met all of her goals and feels ready to discharge to independent program. Pt has HEP and feels comfortable continuing with this, especially to maintain her finger ROM / extension. Initial Primary Functional Limitations/ Weakness and limited PIP Concerns extension of the RUE RF. Interventions Provided During Treatment Evaluation,Edema Control,Joint Mobilization,Manual Therapy, Splinting,Ultrasound,Wound Care/Scar Management, Therapeutic Exercise, Therapeutic Activities,Self Care/Home Management Recommendations/Reason for Discharge Met All Therapy Goals Discharge Instructions Continue with HEP targeted at the RUE RF ROM and hand strength.
== END 2024-05-21 17:38 | disposition home or self-care (01) ==
PROVIDERS: PCP Family Medicine; Visit Provider Physician Assistant Surgical
DX: Z98.890 Other specified postprocedural states (principal); R53.1 Weakness; Z51.89 Encounter for other specified aftercare
CPT/HCPCS: 97035; 97140; 97165; L3933

== ENCOUNTER 2024-05-26 09:39 | Outpatient (CLI) | payer MEDICARE, SELFPAY ==
--- OUTSIDE RECORDS SUMMARY | 2024-05-26 09:41 | XMS_ITS | Clinical Summary ---
Author Organization [facility] Address [address] [place] [address] Care Team Providers Care Watch Mechanic Name Role Phone Unavailable Primary Care Provider Unavailabl e Source Comments Patient records contain information from all sites at [facility]. For routine questions regarding patient records, call [phone] during business hours, M-F 8:00 AM - 5:00 PM Central Time. Record requests for emergency care only can be directed to [phone] at any time.[facility] Allergies No known active allergies Medications cholecalciferol [...] from 08/16/2023:Stage IA(cT1c, cN0, cM0, G2, ER+, [place]+, HER2-) - Unsigned Pathologic stage from 09/13/2023:Stage IA(pT1c, pN0, cM0, G2, ER+, [place]+, HER2-, Oncotype DX score: 15) - Unsigned [...] drink = 0.6 oz pur e alcohol) [facility] Utilities Answer Date Recorded In the [...] your living situation today? I have a [facility] place to live 08/28/2023 Comments Unknown Sex and Gender Information Value Date Recorded Sex Assigned at Female 08/28/2023 5:41 PM BILINGUAL INSIDE SALES REPRESENTATIVE Legal Sex Female 10:20 PM BILINGUAL INSIDE SALES REPRESENTATIVE Gender Identity Female 08/28/2023 5:41 PM BILINGUAL INSIDE SALES REPRESENTATIVE Sexual Orientation Straight 08/28/2023 5: 41 PM BILINGUAL INSIDE SALES REPRESENTATIVE Last Filed Vital Signs Vital Sign Reading [...] OUTSIDE MG MAMMOGRAM Routine 08/16/2023 10:50 AM BILINGUAL INSIDE SALES REPRESENTATIVE from Last 3 Months or Most Recently Relevant to Health Maintenance Results * MM clip placement RT-Outside Mammogram (08/16/2023 10:50 AM BILINGUAL INSIDE SALES REPRESENTATIVE) Narrative IIMS - 08/21/2023 3:20 PM BILINGUAL INSIDE SALES REPRESENTATIVE This order has been created and auto-finalized [...] Relevant to Health [place] [address] MEDICARE [facility]
--- OUTSIDE RECORDS SUMMARY | 2024-05-26 09:41 | XMS_ITS ---
Author Organization [facility] Address [address] [place] [address] Care Team Providers Care Cinder Block Maker Name Role Phone Unavailable Unavailable Unavailable Surgery Details Not on file Complications Check Surgery Details section. Procedure Estimated Blood Loss Check Surgery Details section. Procedure Findings Check Surgery Details section. Procedure Specimens Taken Check Surgery Details section.
--- OUTSIDE RECORDS SUMMARY | 2024-05-26 09:41 | XMS_ITS | Clinical Summary ---
Author Organization [facility] Address [place], [place] [address] Care Team Providers Care Filing Or Registry Clerk Name Role Phone Yolis Samayoa MD Primary [...] Encounters Date Type Department Care Team Description 05/23/2024 Orders Only [facility] [address] [place] [address] Elle Lara 1 scan: (1-Ord) Zio Report 05/13/2024 Office Visit [facility] [address] [place] [address] Treat, Sara May, DO Telehealth (TS consult ) from Last [...] 11/27/2023 10:28 AM CDT Plan of Treatment Upcoming Encounters Date Type Department Care Team (Late st Contact Info) Description 05/26/2024 10:00 AM NEW CAR SALES MANAGER Ancillary Procedure [facility] [address] [place] [address] Health Maintenance Due Date Last Done Comments Hepatitis C screening for ag e 18-79 02/28/1974 Colonoscopy through age 75 02/28/2001 Zoster (shingles) series for age 50+ (1 of 2) 02/28/2006 Depression screening for age 12+ 10/24/2018 10/25/19 18, 07/17/2016 Mammogram for age 45-75 12/28/2019 12/28/19 19, 05/01/2017, 10/14/2013 (Completed outside of [facility]) Tetanus booster 07/14/2020 07/14/2010 DEXA/DXA scan for age 65+ 02/28/2021 Medicare Wellness for age 65+ 02/28/2021 Pneumococcal series for age 65+ (1 of 1 - PCV) 02/28/2021 Lipids for age 45-75 07/21/2021 07/21/2016 COVID-19 vaccine series ( season) 2024 10/21/2020, 09/23/2020 Influenza for age 65+ 03/16/2024 BMI (ht and wt on same day) for age 18+ 11/26/2024 11/27/2023, 05/18/2017, 02/01/2017, Additional history exists Tdap Completed 07/14/2010 Procedures Procedure Name Priority Date/Time Associated Diagnosis Comments EXTENDED HOLTER Routine 05/23/2024 Transient cerebral ischemic attack SCAN-MAMMOGRAPHY REPORT 12/27/2018 12:00 AM CDT LIPID PANEL W REFLEX MEASURED LDL Routine 07/21/2016 Lipid screening from Last 3 Months or Most Recently Relevant to Health Maintenance Results * EXTENDED HOLTER (05/23/2024) Yolis Samayoa MD CARDIAC SERVICES ORD * SCAN-MAMMOGRAPHY REPORT (12/27/2018 12:00 AM CDT) Anatomical Region Laterality Modality Other Scanner OTHER * LIPID PANEL W REFLEX MEASURED LDL (07/21/2016) LDL CHOLESTEROL 73 mg/dL HDL CHOLESTEROL 78 mg/dL TOTAL 163 % TRIGLYCERIDES 62 MG/DL Blood BLOOD SPECIMEN / Unknown 07/21/2016 Rosemary Leonard DO CHEMISTRY from Last 3 Months or Most Recently Relevant to Health Maintenance Care Teams Filing Or Registry Clerk Relationship Specialty Start Date End Date Yolis Samayoa MD [address] [place] [address] PCP - General Family Practice 10/15/23
--- OUTSIDE RECORDS SUMMARY | 2024-05-26 09:41 | XMS_ITS ---
Author Organization [facility] Address [address] [place] [address] Care Team Providers Care Concrete Laborer Name Role Phone Unavailable Primary Care Provider Unavailabl e Active Problems Problem Noted Date Diagnosed Date Malignant Neoplasm Of Overla pping Sites Of Right Female Breast 08/27/2023 Cancer Staging:Clinical stage from 08/16/2023:Stage IA(cT1c, cN0, cM0, G2, ER+, LA+, HER2-) - Unsigned Pathologic stage from 09/13/2023:Stage IA(pT1c, pN0, cM0, G2, ER+, LA+, HER2-, Oncotype DX score: 15) - Unsigned Current Oncology Plans No current plan information found. Past Plans No past plan information found. Radiation Treatments * Plan Last Treated On Elapsed Days Fractions Treated Prescribed Fraction Dose Prescribed Total Dose [id number] 11/02/2023 4 5 of 5 520 cGy 2,600 cGy Reference Point Last Treated On Elapsed Days Session Dose Total Dose [id number] 11/02/2023 4 520 cGy 2,600 cGy
--- OUTSIDE RECORDS SUMMARY | 2024-05-26 09:41 | XMS_ITS | Referral Summary ---
Author Organization [facility] Address [address] [place] [address] Care Team Providers Care Operations/Dispatch Name Role Phone Unavailable Primary Care Provider Unavailabl e Source Comments Patient records contain information from all sites at [facility]. For routine questions regarding patient records, call [phone] during business hours, M-F 8:00 AM - 5:00 PM Central Time. Record requests for emergency care only can be directed to [phone] at any time.[facility] Allergies No known active allergies Medications cholecalciferol [...] from 08/16/2023:Stage IA(cT1c, cN0, cM0, G2, ER+, [place]+, HER2-) - Unsigned Pathologic stage from 09/13/2023:Stage IA(pT1c, pN0, cM0, G2, ER+, [place]+, HER2-, Oncotype DX score: 15) - Unsigned Immunizations Name Administration Dates Next Due Influenza, Unspecified 07/03/2007 Tdap 07/14/2010 Social History Tobacco Use Types Packs/Day Years Used Date Smoking Tobacco: Never Smokeless Tobacco: Never Tobacco Cessation:Counseling Given: Not Answered Alcohol Use Standard Drinks/Week Comments Yes 0 (1 standard drink = 0.6 oz pur e alcohol) [facility] Utilities Answer Date Recorded In the [...] your living situation today? I have a [facility] place to live 08/28/2023 Comments Unknown Sex and Gender Information Value Date Recorded Sex Assigned at Female 08/28/2023 5:41 PM HOSPITAL MORTICIAN Legal Sex Female 10:20 PM HOSPITAL MORTICIAN Gender Identity Female 08/28/2023 5:41 PM HOSPITAL MORTICIAN Sexual Orientation Straight 08/28/2023 5: 41 PM HOSPITAL MORTICIAN Last Filed Vital Signs Vital Sign Reading [...] OUTSIDE MG MAMMOGRAM Routine 08/16/2023 10:50 AM HOSPITAL MORTICIAN from Last 3 Months or Most Recently Relevant to Health Maintenance Results * MM clip placement RT-Outside Mammogram (08/16/2023 10:50 AM HOSPITAL MORTICIAN) Narrative IIMS - 08/21/2023 3:20 PM HOSPITAL MORTICIAN This order has been created and auto-finalized [...] Relevant to [place] [address] MEDICARE [facility]
== END 2024-05-26 09:40 | disposition home or self-care (01) ==
LOC: RAD 09:40
PROVIDERS: PCP Family Medicine; Visit Provider Family Medicine
DX: G45.9 Transient cerebral ischemic attack, unspecified (principal); I34.0 Nonrheumatic mitral (valve) insufficiency
CPT/HCPCS: 93306

== ENCOUNTER 2024-06-05 10:51 | Outpatient (RCR) | payer MEDICARE, SELFPAY | END 2024-12-02 23:59 | disposition home or self-care (01) | LOC: CCIC 10:51 | PROVIDERS: PCP Family Medicine; Referring Provider Family Medicine; Visit Provider Physician Assistant | DX: C50.911 Malignant neoplasm of unspecified site of right female breast (principal); Z17.0 Estrogen receptor positive status [ER+]; M81.0 Age-related osteoporosis without current pathological fracture | CPT/HCPCS: 99214; G0463 ==

== ENCOUNTER 2024-07-15 10:15 | Outpatient (RCR) | payer MEDICARE, SELFPAY ==
--- NOTE | 2023-09-04 10:06 | PT.OPE ---
PT [place] Outpatient Eval PT [facility] Outpatient Eval Start: 09/04/23 08:38 Freq: Status: Active Protocol: Document 09/04/23 08:38 ENM (Rec: 09/04/23 09:49 ENM [id number]) E-signed By Gloria Russ DPT Physical Therapy Outpatient Evaluation Insurance Information Recert Due Date 11/27/23 Insurance Name Medicare B Medical Diagnosis right breast lumpectomy with SLND 09/13/23 Treating Diagnosis breast cancer, impaired posture, decreased scapular strength Referring MD Angeles Subjective Subjective Patient presents to PT for pre -op evaluation prior to right breast lumpectomy with SLND for invasive ductal carcinoma ERPR+ HER2-. Was first diagnosed earlier this month. Plan is to have radiation after surgery, might be just 5 treatments. She is feeling hesitant about the SLND as she is fearful of lymphedema. Patient stays active with gardening and traveling. Does see a chiropractor at baseline for stiffness in her neck. Pain Comments none Current Work Status Retired Objective Other/Pertinent Objective AROM standing: Shoulder flexion L 173 R 174 abduction L 175 R 176 Scaption L 168 R 170 IR L T6 R T9 ER T3 Posture: protracted shoulders, increased thoracic kyphosis Joint mobility: posterior glide of GH limited B inferior glide of GH limited B Scapular control: fair scap setting Pec length in supine abd/ER: minimal limitations Functional Test Performed & Score Pre op SPADI: pain 0 disability 0 Assessment Assessment/Impression Patient presents to PT pre- operatively for planned Breast Cancer surgery to include lumpectomy and planned SLNB on 09/13/23. Assessment today included baseline UE ROM, postural, and joint mobility measurements which are to be compared to measurements retaken 4 weeks post-surgery. At that time, any reduced movement, decline in function, or postural issues will be addressed with skilled care and new goals will be established. Education was given today regarding post-operative signs of infection, axillary cording, seroma formation, and home program to be performed within the first 3-4 weeks post-operatively focusing on UE mobility within surgical restrictions. Plan of Care Rehabilitation Potential Good Physical Therapy Goals Goals pre op 1. Pt demonstrates awareness of post-operative movement restrictions and HEP to facilitate lymphatic regeneration and reduce the risk of seroma formation, axillary web syndrome and lymphedema while ensuring shoulder joint mobility. Coordination/Communication With Referral Source Treatment Plan/Direct Interventions Ice/Cold/Vasopneumatic,Joint Mobilization,Manual Therapy, Neuromuscular Re-ed,Self-Care/ Home Management,Therapeutic Activities,Therapeutic Exercises Frequency/Duration 1-4 visits after surgery, additional visits may be needed depending on further breast cancer treatment Patient Will Be Discharged From Therapy Completion of LTG(s), Independent w/HEP Evaluation Billing Untimed Code Treatment Minutes 22 Complexity Low Certification Information Initial Certification Date 09/04/23 Ending Certification Date 11/27/23 Provider Signature Shows Agreement With POC & Medical Necessity Physician Signature & Date Requested Please Sign/Date Here Physician Comment/Change : Physician NPI Number #
--- NOTE | 2023-09-04 18:01 | OT.OPLE2 ---
OT Outpatient Lymphedema Eval* OT Outpatient Lymphedema Eval* Start: 09/04/23 12:32 Freq: Status: Active Protocol: Document 09/04/23 12:32 AMB (Rec: 09/04/23 17:58 AMB [id number]) E-signed By Michaela Castaneda, OTR/L, CLT, CLINICAL MICROBIOLOGIST OT Outpatient Evaluation Details Type Type Eval Complexity Low Insurance Information Insurance Information Insurance Information Medicare B OT OP Lymphedema Evaluation Current Condition/Medical Diagnosis Referring Provider Dr Angeles Treatment Diagnosis R Breast CA, Lymphedema risk Date Of Onset 09/13/23 Medical History Medical History Cancer Treatment/Surgery Medical History Comments PMH (copied from medical chart ): Osteoarthritis of right knee ( Acute) M17.11 - Unilateral primary osteoarthritis, right knee ( ICD-10) Chondrocalcinosis of right knee (Acute) M11.261 - Other chondrocalcinosis, right knee (ICD-10) Lymphocytic colitis (Chronic) K52.832 - Lymphocytic colitis (ICD-10) Squamous cell carcinoma of skin of face (Resolved 06/2021 ) C44.320 - Squamous cell carcinoma of skin of unspecified parts of face (ICD -10) Sensorineural hearing loss ( SNHL) (Chronic) Mild to Moderate. H90.5 - Unspecified sensorineural hearing loss ( ICD-10) Obstructive sleep apnea syndrome (Chronic) Does not use CPAP. G47.33 - Obstructive sleep apnea (adult) (pediatric) (ICD -10) History of adenomatous polyp of colon (Acute 01/13/19) 01/13/19 7mm tubular adenoma. Next 2023. Z86.010 - Personal history of colonic polyps (ICD-10) Allergic rhinitis (Chronic 29/06) J30.9 - Allergic rhinitis, unspecified (ICD-10) Acute torticollis (Acute) M43.6 - Torticollis (ICD-10) Medical History (Reviewed 03/07 @ 13:46 by Raiza Biggs ~ [facility]) Trigger finger, left middle finger M65.332 - Trigger finger, left middle finger (ICD-10) Lymphocytic colitis K52.832 - Lymphocytic colitis (ICD-10) Squamous cell carcinoma of skin of face (06/2021) C44.320 - Squamous cell carcinoma of skin of unspecified parts of face (ICD -10) Sensorineural hearing loss ( SNHL) H90.5 - Unspecified sensorineural hearing loss ( ICD-10) Obstructive sleep apnea syndrome G47.33 - Obstructive sleep apnea (adult) (pediatric) (ICD -10) History of adenomatous polyp of colon (01/13/19) Z86.010 - Personal history of colonic polyps (ICD-10) Allergic rhinitis (10/29/11) J30.9 - Allergic rhinitis, unspecified (ICD-10) Surgical History Surgical History PSH (copied from medical chart ): Surgical History (Reviewed 03/07 @ 13:46 by Raiza Biggs ~ [facility]) H/O: hysterectomy Z90.710 - Acquired absence of both cervix and uterus (ICD-10 ) S/P right knee arthroscopy () Z98.890 - Other specified postprocedural states (ICD-10) History of colposcopy with cervical biopsy (1997) Z98.890 - Other specified postprocedural states (ICD-10) Family History Family History of Lymphedema No Current Work Status Current Work Status Retired Current Work Status Comments Pt is a retired preschool assistant director Subjective Subjective Pt states she was recently diagnosed with right breast cancer and will undergo lumpectomy at the end of this month. Pt is very concerned about the need to remove LN as she states she has read about it and is really afraid of getting lymphedema. States she is considering not having the LN removed. Also concerned that she may need radiation following her surgery. Encouraged pt to speak with her MD regarding her concerns. Discussed that not everyone who undergoes these treatments will develop lymphedema. Living Situation Current Living Situation Home With Spouse Or SO Problem List Problem List Limited Knowledge of Lymphedema Treatment/Condition /Precautions,Limited Knowledge of Skin Care & Infection Precautions,Significant Risk For Infection For Lymphedema Related Complications,Does Not Have a HEP Problem List Comments Following right breast lumpectomy with SLNB, pt will be at risk for lymphedema in her right upper quadrant. Pt may also need radiation which will increase her risk. Exercise History Does Patient Exercise Regularly Yes Exercise Comments Pt enjoys walking, camping, and gardening, hoping to increase her walking when medically cleared and when the weather warms up. Pain Pain No ROM/Strength ROM/Strength Comments Pt demonstrates full AROM and strength in BUE, no pain. Compression History Does Patient Currently Wear Compression No During Daytime Does Patient Currently Wear Compression No At Night Current Swelling (Location/Pitting/Texture) Pitting Scale: 0 = No pitting 1+ Tissue returns to normal almost immediately 2+ Tissue returns after 15-30 seconds 3+ Tissue returns after 1-1/2 minutes 4+ Tissue returns after 2-3 minutes N/A Tissue no longer pits due to induration Tissue texture: Soft or indurated Clinical Presentation Area Pt will be at risk in the right upper quadrant including right arm/hand, breast, upper back, and lateral trunk/ axilla. Triggering Event & Start Date of Right breast lumpectomy with Swelling/Lymphedema LN removal with possibility of radiation therapy following. Circumferential Measurements Upper Extremity Left Upper Extremity MCP (in cm) 19.5 Palm (in cm) 20.0 Smallest Wrist Measurement (in cm) 16.0 10 cm Above Smallest Wrist Measurement 22.0 20 cm Above Smallest Wrist Measurement 25.5 30 cm Above Smallest Wrist Measurement 30.2 40 cm Above Smallest Wrist Measurement 33.8 Total Girth in cm 167.0 UE Volume C 289.66 UE Volume D 449.67 UE Volume E 618.68 UE Volume F 815.73 Upper Extremity Volume Total in cm 2,173.74 Right Upper Extremity MCP (in cm) 19.3 Palm (in cm) 19.8 Smallest Wrist Measurement (in cm) 15.5 10 cm Above Smallest Wrist Measurement 21.0 20 cm Above Smallest Wrist Measurement 25.7 30 cm Above Smallest Wrist Measurement 30.3 40 cm Above Smallest Wrist Measurement 34.0 Total Girth in cm 165.6 UE Volume C 267.04 UE Volume D 435.33 UE Volume E 625.29 UE Volume F 823.43 Upper Extremity Volume Total in cm 2,151.09 Assessment Assessment Pt presents pre-operatively for initiation of lymphedema surveillance program. Following her 09/13/23 right sided lumpectomy with SLN biopsy, pt is at risk for lymphedema in her RUE / upper quadrant due to LN removal. Pt may need radiation which would add to her risk. Pt will benefit from skilled OT intervention for pt education, monitoring / surveillance in order to provide early detection / intervention to assure best positive outcomes with fewer lymphedema related complications if the need arises. Pt demonstrates good interest and motivation to be an active participant in her care. Pt asked multiple pertinent questions and received satisfactory answers. Pt was given contact info and encouraged to reach out if more questions arise. Patient Goals Patient Goals 1. Pt will demonstrate a general understanding of the lymphatic system, s/s of lymphedema, treatment of lymphedema, implications of untreated lymphedema, s/s of infection and the correlation of infection related to lymphedema. 3 months 2. Pt will be compliant with quarterly assessments for lymphedema surveillance in order to obtain early intervention with best outcomes if needed. 12 months Treatment Plan Treatment Plan Evaluation,Edema Control, Manual Therapy,Wound Care/Scar Management,Therapeutic Exercise,Therapeutic Activities,Self-Care/Home Management,Education Other Treatment Plan Will f/u with pt 4 weeks after surgery and then every 3 months for 12 months or prn if needs arise. Certification Certification Statement I Certify That: Therapy Services Provided, Therapy Plan Established, Therapy Plan Reviewed Certification Information Clinic ID # [id number] Initial Certification Date 09/04/23 Recertification Due Date 12/03/23 Provider Signature Shows Agreement With POC & Medical Necessity Physician Comment/Change Comment or Changes Physician NPI Number #
--- NOTE | 2023-10-10 15:01 | PT.OPDNX ---
PT [facility] Outpatient Daily Note PT [facility] Outpatient Daily Note Start: 10/10/23 14:56 Freq: Status: Active Protocol: Document 10/10/23 14:56 ENM (Rec: 10/10/23 14:57 ENM [id number]) E-signed By Gloria Russ DPT PT OP Daily Progress Note Visit Information Note Type Re-Evaluation Visit Number 2 Insurance Information Recert Due Date 01/08/24 Insurance Name Medicare B Medical Diagnosis right breast lumpectomy with SLND 09/13/23 Treating Diagnosis right arm pain, decreased shoulder ROM Referring MD Angeles Subjective Subjective Patient presents to PT for post-op evaluation after right breast lumpectomy with SLND for invasive ductal carcinoma ERPR+ HER2-. Had 5 lymph nodes taken out which were negative. Plan is to have radiation might be just 5 treatments but is not sure when this will start. Does not have to do chemo. May also have to potentially go on the hormone dolly. Her primary discomfort is in her right breast and under arm from sensitivity. Her shoulder and arm feel ready to do more. Denies any heaviness or fullness of the arm. Pain Comments achiness and sensitivity in her under arm Home Exercise Home Exercise Comments Access Code: [email or web address] URL: [email or web address] Date: 10/10/2023 Prepared by: Gloria Russ Exercises - Supine Shoulder Flexion AAROM - 3 x daily - 7 x weekly - 10 reps - 5 seconds hold - Supine Chest Stretch with Elbows Bent - 3 x daily - 7 x weekly - 10 reps - 5 seconds hold - Standing Shoulder Flexion Full Range - 3 x daily - 7 x weekly - 10 reps - 5 seconds hold - Shoulder blade squeeze - 3 x daily - 7 x weekly - 10 reps - 5 seconds hold Objective Other/Pertinent Objective AROM standing: Shoulder flexion L 173 R 163 ( tightness in anterior arm when performing) abduction L 175 R 170 IR L T6 R T7 Posture: protracted shoulders, increased thoracic kyphosis Palpation: slight tenderness to palpation along breast and axilla moderate tissue restrictions and fullness at inferior right breast mild tissue restrictions at axilla Observation/swelling: no significant swelling or bruising Cording - Functional Test Performed & Score Post op SPADI: pain 0 disability 0 Pre op SPADI: pain 0 disability 0 Patient Instructed in Risks/Benefits Yes Therapeutic Exercise Therapeutic Exercise Minutes (minutes) 6 Therapeutic Exercise: To Restore Access Code: [email or web address] Functional Status URL: [email or web address] Date: 10/10/2023 Prepared by: Gloria Russ Exercises - Supine Shoulder Flexion AAROM - 3 x daily - 7 x weekly - 10 reps - 5 seconds hold - Supine Chest Stretch with Elbows Bent - 3 x daily - 7 x weekly - 10 reps - 5 seconds hold - Standing Shoulder Flexion Full Range - 3 x daily - 7 x weekly - 10 reps - 5 seconds hold - Shoulder blade squeeze - 3 x daily - 7 x weekly - 10 reps - 5 seconds hold Manual Therapy Techniques Manual Therapy Minutes (minutes) 13 Manual Therapy Techniques - soft tissue mobilization to R inferior breast with arm in abd/ER positioning -scar mobilization at breast and axilla light-mod pressure Educated patient on how to perform scar mobilizations at home Treatment Minutes Untimed Code Treatment Minutes 20 Timed Code Treatment Minutes 19 Total Treatment Time 39 Billing Units Therapeutic Exercise Units 1 Re-Evaluation Units 1 Assessment/Impression Assessment/Impression Patient returns to PT for her 4 week post-operative evaluation to compare baseline pre-operative measurements to her current condition, in addition to assessing for post -operative impairments that will benefit from continuation of skilled care. She currently presents with decreased shoulder ROM, moderate tissue restrictions at incisions and right axillary/arm sensitivity that will benefit from skilled care , including therapeutic exercise, manual therapy, neuromuscular education, self- care training and HEP training , in order to return her to her prior level of function and comfort. Patient is going on vacation for the next 2 weeks then will return to clinic for reassessment. Plan of Care Physical Therapy Goals In 4-6 visits: 1. Restore shoulder AROM, as measured at pre-operative evaluation, after initial recovery period to improve 1 and 2-handed functional activity ability. (This will reduce during radiation therapy inflammatory phase, if needed.) 2. Restore functional scoring using SPADI assessment tool to pre-operative amounts to ensure full return to baseline function. 3. Restore full upright posture per patient perception or compared to pre-operative findings. Daily Plan of Care Continue per POC Daily Plan of Care Comments Plan: progress ROM progress into strength at 6 weeks reassess tissue restrictions Recertification Information Initial Certification Date 09/04/23 Recertification Start Date 10/10/23 Recertification Due Date 01/08/24 Provider Signature Shows Agreement With POC & Medical Necessity Physician Comment/Change Comment or Changes Physician NPI Number #
--- NOTE | 2024-01-09 09:27 | PT.OPDNX ---
PT [facility] Outpatient Daily Note PT [facility] Outpatient Daily Note Start: 10/10/23 14:56 Freq: Status: Active Protocol: Document 01/09/24 07:41 ENM (Rec: 01/09/24 09:05 ENM [id number]) E-signed By Gloria Russ DPT PT OP Daily Progress Note Visit Information Note Type Recert/Progress Note Visit Number 8 Insurance Information Recert Due Date 04/08/24 Insurance Name Medicare B Medical Diagnosis right breast lumpectomy with SLND 09/13/23 Treating Diagnosis right arm pain, decreased shoulder ROM Referring MD Angeles Subjective Subjective Patient states that her vacation was good. Noted some inner thigh discomfort with longer periods of driving on the way home. Her back has been stiff since then. Is having surgery for her trigger finger on January 20. Her breast is feeling less sensitive it is uncomfortable some with deep pressure. Her nerves are feeling better through her axilla with improving sensation. Pain Comments achiness and sensitivity in her under arm Home Exercise Home Exercise Comments Access Code: [email or web address] URL: [email or web address] Date: 11/28/2023 Prepared by: Gloria Russ Exercises - Scaption with Dumbbells - 1 x daily - 3-4 x weekly - 2-3 sets - 10 reps - Standing Bent Over Single Arm Scapular Row with Table Support - 1 x daily - 3-4 x weekly - 2-3 sets - 10 reps - Shoulder Overhead Press in Flexion with Dumbbells - 1 x daily - 3-4 x weekly - 2-3 sets - 10 reps - Sit to Stand with Arms Crossed - 1 x daily - 3-4 x weekly - 2-3 sets - 8-10 reps - Side Stepping with Resistance at Ankles - 1 x daily - 3-4 x weekly - 2-3 sets - 10 reps Objective Other/Pertinent Objective Shoulder flexion AROM L 165 R 158 shoulder abduction AROM L 170 R 165 IR L T6 R T10 Functional Test Performed & Score Post op SPADI: pain 0 disability 0 Pre op SPADI: pain 0 disability 0 Patient Instructed in Risks/Benefits Yes Therapeutic Exercise Therapeutic Exercise Minutes (minutes) 3 Therapeutic Exercise: To Restore pre and post MT shoulder Functional Status flexion and abduction AROM verbal review of HEP Therapeutic Activity Therapeutic Activity Minutes (minutes) 6 Therapeutic Activities Comments Discussed symptoms at her back and with her history as well as length of her drive reinforced that likely that is causing flare up. If symptoms do not improve encouraged patient to get a PT referral for her back. Manual Therapy Techniques Manual Therapy Minutes (minutes) 20 Manual Therapy Techniques -STM to inferior right breast to help address firmness in this area (minimal tension felt this session) -overall fascial mobility throughout axilla Treatment Minutes Timed Code Treatment Minutes 29 Total Treatment Time 29 Billing Units Manual Therapy Units 2 Assessment/Impression Assessment/Impression Patient returns to PT for follow up after right breast lumpectomy. Her tenderness at the breast has improved since last session. Firmness at the breast has resolved. She is having no complaints related to breast cancer surgery anymore. Encouraged patient to continue with her HEP and pursue a low back pain referral if symptoms in this area do not improve after most recent flare up. Mariah has met all goals for PT. Will put PT on hold x1 month for patient to return, after this time frame Mariah will be d/c. Plan of Care Physical Therapy Goals In 4-6 visits: 1. Restore shoulder AROM, as measured at pre-operative evaluation, after initial recovery period to improve 1 and 2-handed functional activity ability. (This will reduce during radiation therapy inflammatory phase, if needed.) MET 2. Restore functional scoring using SPADI assessment tool to pre-operative amounts to ensure full return to baseline function. MET 3. Restore full upright posture per patient perception or compared to pre-operative findings. MET Daily Plan of Care Continue per POC Recertification Information Initial Certification Date 09/04/23 Recertification Start Date 01/09/24 Recertification Due Date 04/08/24 Reasons to Continue Skilled Therapy Patient benefits from skilled PT for return to PLOF after breast cancer surgery and treatment Rehabilitation Potential good Continued Plan of Care and Interventions no additional visits needed at this time Provider Signature Shows Agreement With POC & Medical Necessity Physician Comment/Change Comment or Changes Physician NPI Number #
--- NOTE | 2024-01-10 11:47 | OT.OPLDN2 ---
OT Outpatient Lymphedema Daily Note OT Outpatient Lymphedema Daily Note* Start: 09/04/23 12:32 Freq: Status: Active Protocol: Document 01/10/24 09:45 AMB (Rec: 01/10/24 11:47 AMB [id number]) E-signed By Michaela Castaneda, OTR/L, CLT, GAS PUMPING STATION HELPER Type of Note Type of Note Type of Note Daily Note,Recert/Progress Note Visit Number 3 Comments MC Cert due 03/03/24 Insurance Information Insurance Information Insurance Information Medicare B OT OP Lymphedema Daily/Progress Note Current Condition/Medical Diagnosis Referring Provider Dr Angeles Treatment Diagnosis R Breast CA, Lymphedema Risk Date Of Onset 09/13/23 Medical History Medical History Cancer Treatment/Surgery Medical History Comments PMH (copied from medical chart ): Osteoarthritis of right knee ( Acute) M17.11 - Unilateral primary osteoarthritis, right knee ( ICD-10) Chondrocalcinosis of right knee (Acute) M11.261 - Other chondrocalcinosis, right knee (ICD-10) Lymphocytic colitis (Chronic) K52.832 - Lymphocytic colitis (ICD-10) Squamous cell carcinoma of skin of face (Resolved 06/2021 ) C44.320 - Squamous cell carcinoma of skin of unspecified parts of face (ICD -10) Sensorineural hearing loss ( SNHL) (Chronic) Mild to Moderate. H90.5 - Unspecified sensorineural hearing loss ( ICD-10) Obstructive sleep apnea syndrome (Chronic) Does not use CPAP. G47.33 - Obstructive sleep apnea (adult) (pediatric) (ICD -10) History of adenomatous polyp of colon (Acute 01/13/19) 01/13/19 7mm tubular adenoma. Next 2023. Z86.010 - Personal history of colonic polyps (ICD-10) Allergic rhinitis (Chronic 29/06) J30.9 - Allergic rhinitis, unspecified (ICD-10) Acute torticollis (Acute) M43.6 - Torticollis (ICD-10) Medical History (Reviewed 03/07 @ 13:46 by Raiza Biggs ~ LAT ATC) Trigger finger, left middle finger M65.332 - Trigger finger, left middle finger (ICD-10) Lymphocytic colitis K52.832 - Lymphocytic colitis (ICD-10) Squamous cell carcinoma of skin of face (06/2021) C44.320 - Squamous cell carcinoma of skin of unspecified parts of face (ICD -10) Sensorineural hearing loss ( SNHL) H90.5 - Unspecified sensorineural hearing loss ( ICD-10) Obstructive sleep apnea syndrome G47.33 - Obstructive sleep apnea (adult) (pediatric) (ICD -10) History of adenomatous polyp of colon (01/13/19) Z86.010 - Personal history of colonic polyps (ICD-10) Allergic rhinitis (10/29/11) J30.9 - Allergic rhinitis, unspecified (ICD-10) Surgical History Surgical History PSH (copied from medical chart ): Surgical History (Reviewed 03/07 @ 13:46 by Raiza Biggs ~ LAT ATC) H/O: hysterectomy Z90.710 - Acquired absence of both cervix and uterus (ICD-10 ) S/P right knee arthroscopy () Z98.890 - Other specified postprocedural states (ICD-10) History of colposcopy with cervical biopsy (1997) Z98.890 - Other specified postprocedural states (ICD-10) Family History Family History of Lymphedema No Current Work Status Current Work Status Retired Current Work Status Comments Pt is a retired middle school science teacher Subjective Subjective Pt returns for f/u of lymphedema surveillance. Pt completed 5 rounds of XRT from 10/29/23-11/02/23. Pt was seen for f/u in oncology on she has declined endocrine therapy and will not need chemo. Pt feels she is doing well, no sxs of lymphedema that she has noticed. Pt will be having TF release on , although, she has noticed that ever since she decided to proceed with surgery, her finger has been much better, so she may postpone it as she has her 50th class reunion coming up in [place] and her has to have a prostate biopsy and possible cancer treatment. Living Situation Current Living Situation Home With Spouse Or SO Problem List Problem List Limited Knowledge of Lymphedema Treatment/Condition /Precautions,Limited Knowledge of Skin Care & Infection Precautions,Significant Risk For Infection For Lymphedema Related Complications,Does Not Have a HEP Problem List Comments Following right breast lumpectomy with SLNB, pt will be at risk for lymphedema in her right upper quadrant. Pt may also need radiation which will increase her risk. Exercise History Does Patient Exercise Regularly Yes Exercise Comments Pt enjoys walking, camping, and gardening, hoping to increase her walking when medically cleared and when the weather warms up. Pain Pain No ROM/Strength ROM/Strength Comments Pt demonstrates full AROM and strength in BUE, no pain. Compression History Does Patient Currently Wear Compression No During Daytime Does Patient Currently Wear Compression No At Night Current Swelling (Location/Pitting/Texture) Pitting Scale: 0 = No pitting 1+ Tissue returns to normal almost immediately 2+ Tissue returns after 15-30 seconds 3+ Tissue returns after 1-1/2 minutes 4+ Tissue returns after 2-3 minutes N/A Tissue no longer pits due to induration Tissue texture: Soft or indurated Clinical Presentation Area Pt is at risk in the right upper quadrant including right arm/hand, breast, upper back, and lateral trunk/axilla. Triggering Event & Start Date of Right breast lumpectomy with Swelling/Lymphedema LN removal and radiation therapy. Circumferential Measurements Upper Extremity Left Upper Extremity MCP (in cm) 19.5 Palm (in cm) 20.0 Smallest Wrist Measurement (in cm) 16.0 10 cm Above Smallest Wrist Measurement 22.0 20 cm Above Smallest Wrist Measurement 25.5 30 cm Above Smallest Wrist Measurement 30.2 40 cm Above Smallest Wrist Measurement 33.8 Total Girth in cm 167.0 UE Volume C 289.66 UE Volume D 449.67 UE Volume E 618.68 UE Volume F 815.73 Upper Extremity Volume Total in cm 2,173.74 Right Upper Extremity MCP (in cm) 19.2 Palm (in cm) 19.5 Smallest Wrist Measurement (in cm) 15.4 10 cm Above Smallest Wrist Measurement 21.0 20 cm Above Smallest Wrist Measurement 25.5 30 cm Above Smallest Wrist Measurement 30.3 40 cm Above Smallest Wrist Measurement 33.5 Total Girth in cm 164.4 UE Volume C 265.67 UE Volume D 431.50 UE Volume E 620.96 UE Volume F 810.46 Upper Extremity Volume Total in cm 2,128.59 Treatment Therapeutic Activity Minutes (minutes) 12 Therapeutic Activity Comments Re-assessment of limb including skin condition, status of axillary cording, and ROM. Unable to detect any cording today, skin is in excellent condition, slight discoloration in area of XRT, but skin is healthy, scar tissue is not concerning / looks good, unable to palpate or visualize any abnormal swelling. Re-assessment of circumferential limb measurements. Self-Care/Home Management Minutes ( 20 minutes) Self-Care/Home Management Comments Provided review of patient education regarding the lymphatic system, s/s of lymphedema, treatment options for lymphedema, implications of untreated lymphedema, infection and it's correlation to lymphedema as well as implications of untreated infection. Discussed risk reduction practices including skin care and monitoring strategies. Discussed the importance of regular exercise and healthy habits. Pt continues to work on increasing her activity, likes to walk her dog and feels really good about that. Total Occupational Therapy Minutes 32 Assessment Assessment Pt presents post-operatively for continuation of lymphedema surveillance program. Following her 09/13/23 right sided lumpectomy with SLN biopsy, pt is at risk for lymphedema in her RUE / upper quadrant due to LN removal. Pt will not need radiation and she has declined endocrine therapy. Currently, pt does not show any s/s of lymphedema in her right upper quadrant. Pt will benefit from skilled OT intervention for pt education, monitoring / surveillance in order to provide early detection / intervention to assure best positive outcomes with fewer lymphedema related complications if the need arises. Pt demonstrates good interest and motivation to continue with surveillance program, feels the benefit. Patient Goals Patient Goals 1. Pt will demonstrate a general understanding of the lymphatic system, s/s of lymphedema, treatment of lymphedema, implications of untreated lymphedema, s/s of infection and the correlation of infection related to lymphedema. 3 months 2. Pt will be compliant with quarterly assessments for lymphedema surveillance in order to obtain early intervention with best outcomes if needed. 12 months Treatment Plan Treatment Plan Evaluation,Edema Control, Manual Therapy,Wound Care/Scar Management,Therapeutic Exercise,Therapeutic Activities,Self-Care/Home Management,Education Other Treatment Plan Will f/u with pt 4 weeks after surgery and then every 3 months for 12 months or prn if needs arise. Occupational Therapy Billing Units Treatment Minutes Timed Treatment Minutes 32 Total Treatment Minutes 32 Billing Units Self Care/Home Management 1 Therapeutic Activities 1 Certification Statement Certification Statement I Certify That: Therapy Services Provided, Therapy Plan Established, Therapy Plan Reviewed Recertification Information Recertification Information Initial Certification Date 09/04/19 Recertification Start Date 12/03/19 Recertification Due Date 03/03/20 Reasons to Continue Skilled Therapy Pt will continue with lymphedema surveillance program with re-assessment quarterly for 12 months following date of surgery. If the need arises, pt will transition to treatment as indicated at the time of need. Studies have shown that continued pt education / assessment leads to early detection and treatment of lymphedema which lends to the best long-term outcomes. Rehabilitation Potential Good Click To Default 'Per treatment plan' Per treatment plan Continued Plan of Care and Interventions Per treatment plan Provider Signature Required Yes Provider Signature Shows Agreement With POC & Medical Necessity Physician NPI Number Write NPI# Here Physician Comment/Change Comment or Changes Physician Signature & Date Requested Please Sign/Date Here
--- NOTE | 2024-04-09 11:42 | OT.OPLDN2 ---
OT Outpatient Lymphedema Daily Note OT Outpatient Lymphedema Daily Note* Start: 09/04/23 12:32 Freq: Status: Active Protocol: Document 04/09/24 09:48 AMB (Rec: 04/09/24 11:40 AMB [id number]) E-signed By Michaela Castaneda, OTR/L, CLT, [employer] Type of Note Type of Note Type of Note Daily Note,Recert/Progress Note Visit Number 4 Comments MC Cert due 03/03/24 Insurance Information Insurance Information Insurance Information Medicare B OT OP Lymphedema Daily/Progress Note Current Condition/Medical Diagnosis Referring Provider Dr Angeles Treatment Diagnosis R Breast CA, Lymphedema Risk Date Of Onset 09/13/23 Medical History Medical History Cancer Treatment/Surgery Medical History Comments PMH (copied from medical chart ): Osteoarthritis of right knee ( Acute) M17.11 - Unilateral primary osteoarthritis, right knee ( ICD-10) Chondrocalcinosis of right knee (Acute) M11.261 - Other chondrocalcinosis, right knee (ICD-10) Lymphocytic colitis (Chronic) K52.832 - Lymphocytic colitis (ICD-10) Squamous cell carcinoma of skin of face (Resolved 06/2021 ) C44.320 - Squamous cell carcinoma of skin of unspecified parts of face (ICD -10) Sensorineural hearing loss ( SNHL) (Chronic) Mild to Moderate. H90.5 - Unspecified sensorineural hearing loss ( ICD-10) Obstructive sleep apnea syndrome (Chronic) Does not use CPAP. G47.33 - Obstructive sleep apnea (adult) (pediatric) (ICD -10) History of adenomatous polyp of colon (Acute 01/13/19) 01/13/19 7mm tubular adenoma. Next 2023. Z86.010 - Personal history of colonic polyps (ICD-10) Allergic rhinitis (Chronic 29/06) J30.9 - Allergic rhinitis, unspecified (ICD-10) Acute torticollis (Acute) M43.6 - Torticollis (ICD-10) Medical History (Reviewed 03/07 @ 13:46 by Raiza Biggs ~ [facility] ATC) Trigger finger, left middle finger M65.332 - Trigger finger, left middle finger (ICD-10) Lymphocytic colitis K52.832 - Lymphocytic colitis (ICD-10) Squamous cell carcinoma of skin of face (06/2021) C44.320 - Squamous cell carcinoma of skin of unspecified parts of face (ICD -10) Sensorineural hearing loss ( SNHL) H90.5 - Unspecified sensorineural hearing loss ( ICD-10) Obstructive sleep apnea syndrome G47.33 - Obstructive sleep apnea (adult) (pediatric) (ICD -10) History of adenomatous polyp of colon (01/13/19) Z86.010 - Personal history of colonic polyps (ICD-10) Allergic rhinitis (10/29/11) J30.9 - Allergic rhinitis, unspecified (ICD-10) Surgical History Surgical History PSH (copied from medical chart ): Surgical History (Reviewed 03/07 @ 13:46 by Raiza Biggs ~ [facility] ATC) H/O: hysterectomy Z90.710 - Acquired absence of both cervix and uterus (ICD-10 ) S/P right knee arthroscopy () Z98.890 - Other specified postprocedural states (ICD-10) History of colposcopy with cervical biopsy (1997) Z98.890 - Other specified postprocedural states (ICD-10) Family History Family History of Lymphedema No Current Work Status Current Work Status Retired Current Work Status Comments Pt is a retired high school social studies tutor Subjective Subjective Pt returns for f/u of lymphedema surveillance. Pt feels she is doing quite well, has not noticed any swelling. However, pt states her nerves are starting to work and it is weird being able to feel the lateral and inferior parts of her right breast. She is actually also having some tenderness on the lateral breast, noted when she does her self scar tissue mobilization. Living Situation Current Living Situation Home With Spouse Or SO Problem List Problem List Limited Knowledge of Lymphedema Treatment/Condition /Precautions,Limited Knowledge of Skin Care & Infection Precautions,Significant Risk For Infection For Lymphedema Related Complications,Does Not Have a HEP Problem List Comments Following right breast lumpectomy with SLNB, pt will be at risk for lymphedema in her right upper quadrant. Pt may also need radiation which will increase her risk. Exercise History Does Patient Exercise Regularly Yes Exercise Comments Pt enjoys walking, camping, and gardening, hoping to increase her walking when medically cleared and when the weather warms up. Pain Pain No ROM/Strength ROM/Strength Comments Pt demonstrates full AROM and strength in BUE, no pain. Compression History Does Patient Currently Wear Compression No During Daytime Does Patient Currently Wear Compression No At Night Current Swelling (Location/Pitting/Texture) Pitting Scale: 0 = No pitting 1+ Tissue returns to normal almost immediately 2+ Tissue returns after 15-30 seconds 3+ Tissue returns after 1-1/2 minutes 4+ Tissue returns after 2-3 minutes N/A Tissue no longer pits due to induration Tissue texture: Soft or indurated Clinical Presentation Area Pt is at risk in the right upper quadrant including right arm/hand, breast, upper back, and lateral trunk/axilla. Triggering Event & Start Date of Right breast lumpectomy with Swelling/Lymphedema LN removal and radiation therapy. Circumferential Measurements Upper Extremity Left Upper Extremity MCP (in cm) 19.5 Palm (in cm) 20.0 Smallest Wrist Measurement (in cm) 16.0 10 cm Above Smallest Wrist Measurement 22.0 20 cm Above Smallest Wrist Measurement 25.5 30 cm Above Smallest Wrist Measurement 30.2 40 cm Above Smallest Wrist Measurement 33.8 Total Girth in cm 167.0 UE Volume C 289.66 UE Volume D 449.67 UE Volume E 618.68 UE Volume F 815.73 Upper Extremity Volume Total in cm 2,173.74 Right Upper Extremity MCP (in cm) 19.2 Palm (in cm) 19.5 Smallest Wrist Measurement (in cm) 15.2 10 cm Above Smallest Wrist Measurement 21.2 20 cm Above Smallest Wrist Measurement 24.7 30 cm Above Smallest Wrist Measurement 29.8 40 cm Above Smallest Wrist Measurement 32.5 Total Girth in cm 162.1 UE Volume C 265.97 UE Volume D 419.94 UE Volume E 592.63 UE Volume F 772.64 Upper Extremity Volume Total in cm 2,051.18 Treatment Therapeutic Activity Minutes (minutes) 15 Therapeutic Activity Comments Re-assessment of limb including skin condition, status of axillary cording, and ROM. Unable to detect any cording today, skin is in excellent condition. pt does have some mild tenderness at the lateral aspect of her right breast and lateral torso , likely due to regeneration of the nerves in this area, unable to palpate any abnormalities, not increased pain with fascial stretch. Also unable to palpate or visualize any lymphedema / swelling. Re-assessment of circumferential limb measurements. Self-Care/Home Management Minutes ( 20 minutes) Self-Care/Home Management Comments Discussed symptoms of discomfort / soreness in the lateral breast / torso and how it is likely related to the nerve regeneration process. Provided review of patient education regarding the lymphatic system, s/s of lymphedema, treatment options for lymphedema, implications of untreated lymphedema, infection and it's correlation to lymphedema as well as implications of untreated infection. Discussed risk reduction practices including skin care and monitoring strategies. Discussed the importance of regular exercise and healthy habits. Pt has been consistent with scar tissue mobilization and increasing her activity levels . Total Occupational Therapy Minutes 35 Assessment Assessment Pt presents post-operatively for continuation of lymphedema surveillance program. Following her 09/13/23 right sided lumpectomy with SLN biopsy, and XRT x 5, pt is at risk for lymphedema in her RUE / upper quadrant. Pt does not show any s/s of lymphedema in her right upper quadrant. Pt will benefit from skilled OT intervention for pt education, monitoring / surveillance in order to provide early detection / intervention to assure best positive outcomes with fewer lymphedema related complications if the need arises. Pt demonstrates good interest and motivation to continue with surveillance program, feels the benefit. Patient Goals Patient Goals 1. Pt will demonstrate a general understanding of the lymphatic system, s/s of lymphedema, treatment of lymphedema, implications of untreated lymphedema, s/s of infection and the correlation of infection related to lymphedema. 3 months 2. Pt will be compliant with quarterly assessments for lymphedema surveillance in order to obtain early intervention with best outcomes if needed. 12 months Treatment Plan Treatment Plan Evaluation,Edema Control, Manual Therapy,Wound Care/Scar Management,Therapeutic Exercise,Therapeutic Activities,Self-Care/Home Management,Education Other Treatment Plan Will f/u with pt 4 weeks after surgery and then every 3 months for 12 months or prn if needs arise. Occupational Therapy Billing Units Treatment Minutes Timed Treatment Minutes 35 Total Treatment Minutes 35 Billing Units Self Care/Home Management 1 Therapeutic Activities 1 Certification Statement Certification Statement I Certify That: Therapy Services Provided, Therapy Plan Established, Therapy Plan Reviewed Recertification Information Recertification Information Initial Certification Date 09/04/23 Recertification Start Date 03/03/24 Recertification Due Date 06/02/24 Reasons to Continue Skilled Therapy Pt will continue with lymphedema surveillance program with re-assessment quarterly for 12 months following date of surgery. If the need arises, pt will transition to treatment as indicated at the time of need. Studies have shown that continued pt education / assessment leads to early detection and treatment of lymphedema which lends to the best long-term outcomes. [ End ] Rehabilitation Potential Good Click To Default 'Per treatment plan' Per treatment plan Continued Plan of Care and Interventions Per treatment plan Provider Signature Required Yes Provider Signature Shows Agreement With POC & Medical Necessity Physician NPI Number Write NPI# Here Physician Comment/Change Comment or Changes Physician Signature & Date Requested Please Sign/Date Here
--- OUTSIDE RECORDS SUMMARY | 2024-07-15 10:08 | XMS_ITS ---
Author Organization [facility] Address [facility] [address] [place] [address] Care Team Providers Care Checker And Packer Name Role Phone Charu Busch D.D.S. 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 ; Arthralgia of bilateral temporomandibular joint M26.623 ; Myalgia, unspecified site M79.10 and Nasal congestion R09.81 Assessments Encounter Date Diagnosis (ICD Code) Assessment Notes Treatment Notes Treatment Clinical Notes Section Notes 07/01/2024 Obstructive sleep apnea (adult) (pediatric) (ICD-10 - G47.33) 07/01/2024 Sleep related bruxis m (ICD-10 - G47.63) 07/01/2024 Snoring (ICD-10 - R06.83) 07/01/2024 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 The provider evaluated the fit and position of the appliance in the patient's mouth, and then we delivered the appliance. Appliance instructions were given verbally and in writing. We gave the patient one set of 19 mm soft (white), one set of 17 mm medium (yellow) straps, and one set of 18 mm firm (blue) straps. We told them to start nighttime appliance wear with the 19 mm white straps and to go to the 17 mm yellow straps after 3-5 days, when comfortable with the white straps; then to go to the blue straps after a week in the yellow straps. We gave them a morning bite repositioner and provided instruction in its use. Providers Dental Recycling Crew Supervisor CHITRA Montoya Progress Notes * Mariah ESCALANTEDOB:1955 (69 yo F)Acc No.[id number]:07/01/2024 Patient: Mariah RUTLEDGE Provider: Rosangela Romero D.D.S., M.S. :1955 A ge:69 Y S ex:Female Date:07/01/2024 Address:[address] [place] [address] [facility] Subjective: * Chief Complaints: * O SA * HPI: S ubjective: Subjective P atient returns to our office for delivery of an RON appliance. * Medical History: * Surgical History: * Hospitalization/Major Diagno stic Procedure: * Medications: T akingDigestive Enzyme Vitamin D3 Table Rock DHA Magnesium Glycinate 120 MG Capsule as directed Orally Multivitamin Aspirin 81 Taking Digestive Enzyme Taking Vitamin D3 Taking Table Rock DHA Taking Magnesium Glycinate 120 MG Capsule as directed Orally Taking Multivitamin Taking Aspirin 81 Objective: * Vitals: Assessment: * Assessment: 1. O bstructive sleep apnea (adult) (pediatric) - G47.33 (Primary) 2 . S leep related bruxism - G47.63 3 . S noring - R06.83 4 . 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 A rthralgia of bilateral temporomandibular joint - M26.623 6 . M yalgia, unspecified site - M79.10 7 . N jessica congestion - R09.81 Plan: * Treatment: * Procedures: D elivery: Delivery ( RON) - Today we confirmed the fit and retention of the RON appliance on the diagnostic casts. The provider evaluated the fit and position of the appliance in the patient's mouth, and then we delivered the appliance. Appliance instructions were given verbally and in writing. We gave the patient one set of 19 mm soft (white), one set of 17 mm medium (yellow) straps, and one set of 18 mm firm (blue) straps. We told them to start nighttime appliance wear with the 19 mm white straps and to go to the 17 mm yellow straps after 3-5 days, when comfortable with the white straps; then to go to the blue straps after a week in the yellow straps. We gave them a morning bite repositioner and provided instruction in its use.. Eros bowie: Dental Recycling Crew Supervisor LDA. Cash * Procedure Codes: E 0486 Oral Device for Sleep Apnea * Follow Up: 4 Weeks (Reason: RON recheck) * Billing Information: * Visit Code: 22098 Office Visit, Est Pt., Level 2. * Procedure Codes: E0486 Oral Device for Sleep Apnea. * SIFIED AD TAKER Sign off status: Completed true * Provider: Rosangela Romero D.D.S., M.S. Date: 09/01/2023 Generated for Jean shelton/Kenrick/Mala on: 10:08 AM CLASSIFIED AD TAKER History and Physical Notes * HPI (History of Present Illness) Category Sub-Category Detail Notes Category Not es Subjective Subjective Patient returns to our office for delivery of an RON appliance
--- OUTSIDE RECORDS SUMMARY | 2024-07-15 10:08 | XMS_ITS | Patient Health Record ---
Author Organization [facility] Address [facility] [address] [place] [address] Care Team Providers Care Certified Social Workers In Health Care Name Role Phone Charu Busch D.D.S. Unavailable Unavailable ANUP MARTÍNEZ Unavailable [phone] SEAN SALMON Unavailable [phone] Allergies Allergen (clinical drug ingredient) Drug/Non Drug Allergy documented on EMR Reaction Allergy Type Onset Date Status formalin (uncoded) Unknown Allergy A ctive Adhesive Unknown Allergy Active Mold Unknown Allergy Active Perfume Perfume Unknown Allergy Active Ragweed Unknown Allergy Active Reason For Referral No Information Medications Medication SIG (Take, Route, Frequency, Duration) Notes Start Date End Date Status Vitamin D3 Active Digestive Enzyme Act yusuf Aspirin 81 06/10/2024 Active Multivitamin Active Magnesium Glycinate 120 MG as directed Orally Active [place] DHA Active Problems Problem Type SNOMED Code ICD Code Onset Dates Problem Status W/U Status Risk Notes Problem Obstructive sleep apnea syndrome (disorder) (28444336) Obstructive sleep apnea (adult) (pediatric) (G47.33) Active confirmed Problem Sleep related bruxism (054651247) Sleep related bruxism (G47.63) Active confirmed Problem Snoring (25336423) Snoring (R06.83) Active conf irmed Problem Nasal congestion (65243118) Nasal congestion (R09.81) Active confirmed Problem Abnormal findings on diagnostic imaging of skull and head (224233082) Abnormal findings on diagnostic imaging of skull and head, not elsewhere classified (R93.0) Active confirmed Problem Screening for cancer (62926480) Encounter for screening for malignant neoplasm of oral cavity (Z12.81) Active confirmed Problem Screening for cancer (45886960) Encounter for screening for malignant neoplasm of other sites (Z12.89) Active confirmed Problem Arthralgia of temporomandibular joint (13893736) Arthralgia of bilateral temporomandibular joint (M26.623) Active confirmed Problem Articular disc disorder of temporomandibular joint (20424009) 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 (M26.633) Active confirmed Problem Muscle pain (73180464) Myalgia, unspecified site (M79.10) Active confirmed Encounters Encounter Location Date Provider Diagnosis [address] [address] 06/10/2024 SEAN SALMON Obstructive sleep ap fina (adult) (pediatric) G47.33 ; 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 ; Snoring R06.83 ; 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 ; Arthralgia of bilateral temporomandibular joint M26.623 ; Myalgia, unspecified site M79.10 ; Nasal congestion R09.81 ; Encounter for screening for malignant neoplasm of oral cavity Z12.81 ; Encounter for screening for malignant neoplasm of other sites Z12.89 and Abnormal findings on diagnostic imaging of skull and head, not elsewhere classified R93.[address] [address] 06/17/2024 SEAN SALMON Obstructive sleep ap fina (adult) (pediatric) G47.33 ; 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 ; Snoring R06.83 ; 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 ; Arthralgia of bilateral temporomandibular joint M26.623 ; Myalgia, unspecified site M79.10 and Nasal congestion R09.[address] [address] 07/01/2024 ANUP MARTÍNEZ Obstructive sleep ap fina (adult) (pediatric) G47.33 ; 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 Supine the AHI is 86, nonsupine 4.8. RDI of 35.3. Patient also has articular disc disorder of bilateral TMJS with associated arthralgia, myalgia. Nasal congestion is present. Patient is appropriate candidate for oral appliance therapy. 06/10/2024 Sleep related bruxism (ICD-10 - G47.63) Patient is affected by STEPHEN with associated snoring and bruxism; sleep study done in April 2024 demonstrates an AHI of 26.6. Supine the AHI is 86, nonsupine 4.8. RDI of 35.3. Patient also has articular disc disorder of bilateral TMJS with associated arthralgia, myalgia. Nasal congestion is present. Patient is appropriate candidate for oral appliance therapy. 06/17/2024 Obstructive sleep apnea (adult) (pediatric) (ICD-10 - G47.33) 06/17/2024 Sleep related bruxism (ICD-10 - G47.63) 07/01/2024 Obstructive sleep apnea (adult) (pediatric) (ICD-10 - G47.33) 07/01/2024 Sleep related bruxism (ICD-10 - G47.63) 07/01/2024 Snoring (ICD-10 - R06.83) 06/17/2024 Snoring (ICD-10 - R06.83) 06/10/2024 Snoring (ICD-10 - R06.83) Patient is affected by STEPHEN with associated snoring and bruxism; sleep study done in April 2024 demonstrates an AHI of 26.6. Supine the AHI is 86, nonsupine 4.8. RDI of 35.3. Patient also has articular disc disorder of bilateral TMJS with associated arthralgia, myalgia. Nasal congestion is present. Patient is appropriate candidate for oral appliance therapy. 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 Supine the AHI is 86, nonsupine 4.8. RDI of 35.3. Patient also has articular disc disorder of bilateral TMJS with associated arthralgia, myalgia. Nasal congestion is present. Patient is appropriate candidate for oral appliance therapy. 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 Supine the AHI is 86, nonsupine 4.8. RDI of 35.3. Patient also has articular disc disorder of bilateral TMJS with associated arthralgia, myalgia. Nasal congestion is present. Patient is appropriate candidate for oral appliance therapy. 06/17/2024 Arthralgia of bilateral temporomandibular joint (ICD-10 - M26.623) 06/17/2024 Myalgia, unspecified site (ICD-10 - M79.10) 06/10/2024 Myalgia, unspecified site (ICD-10 - M79.10) Patient is affected by STEPHEN with associated snoring and bruxism; sleep study done in April 2024 demonstrates an AHI of 26.6. Supine the AHI is 86, nonsupine 4.8. RDI of 35.3. Patient also has articular disc disorder of bilateral TMJS with associated arthralgia, myalgia. Nasal congestion is present. Patient is appropriate candidate for oral appliance therapy. 07/01/2024 Myalgia, unspecified site (ICD-10 - M79.10) 07/01/2024 Nasal congestion (ICD-10 - R09.81) 06/10/2024 Nasal congestion (ICD-10 - R09.81) Patient is affected by STEPHEN with associated snoring and bruxism; sleep study done in April 2024 demonstrates an AHI of 26.6. Supine the AHI is 86, nonsupine 4.8. RDI of 35.3. Patient also has articular disc disorder of bilateral TMJS with associated arthralgia, myalgia. Nasal congestion is present. Patient is appropriate candidate for oral appliance therapy. 06/17/2024 Nasal congestion (ICD-10 - R09.81) 06/10/2024 Encounter for screening for malignant neoplasm of oral cavity (ICD-10 - Z12.81) Patient is affected by STEPHEN with associated snoring and bruxism; sleep study done in April 2024 demonstrates an AHI of 26.6. Supine the AHI is 86, nonsupine 4.8. RDI of 35.3. Patient also has articular disc disorder of bilateral TMJS with associated arthralgia, myalgia. Nasal congestion is present. Patient is appropriate candidate for oral appliance therapy. 06/10/2024 Encounter for screening for malignant neoplasm of other sites (ICD-10 - Z12.89) Patient is affected by STEPHEN with associated snoring and bruxism; sleep study done in April 2024 demonstrates an AHI of 26.6. Supine the AHI is 86, nonsupine 4.8. RDI of 35.3. Patient also has articular disc disorder of bilateral TMJS with associated arthralgia, myalgia. Nasal congestion is present. Patient is appropriate candidate for oral appliance therapy. 06/10/2024 Abnormal findings on diagnostic imaging of skull and head, not elsewhere classified (ICD-10 - R93.0) Patient is affected by STEPHEN with associated snoring and bruxism; sleep study done in April 2024 demonstrates an AHI of 26.6. Supine the AHI is 86, nonsupine 4.8. RDI of 35.3. Patient also has articular disc disorder of bilateral TMJS with associated arthralgia, myalgia. Nasal congestion is present. Patient is appropriate candidate for oral appliance therapy. 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
--- OUTSIDE RECORDS SUMMARY | 2024-07-15 10:08 | XMS_ITS ---
Author Organization [facility] Address [facility] [address], [place] [address] Care Team Providers Care Graphic Design Teacher Name Role Phone Charu Busch D.D.S. 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 ; Arthralgia of bilateral temporomandibular joint M26.623 ; Myalgia, unspecified site M79.10 and Nasal congestion R09.81 Assessments Encounter Date Diagnosis (ICD Code) Assessment Notes Treatment Notes Treatment Clinical Notes Section Notes 06/17/2024 Obstructive sleep apnea (adult) (pediatric) (ICD-10 - G47.33) 06/17/2024 Sleep related bruxis m (ICD-10 - G47.63) 06/17/2024 Snoring (ICD-10 - R06.83) 06/17/2024 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 (ICD-10 - M26.633) 06/17/2024 Arthralgia of bilateral temporomandibular joint (ICD-10 - M26.623) 06/17/2024 Myalgia, unspecified site (ICD-10 - M79.10) 06/17/2024 Nasal congestion (ICD-10 - R09.81) Plan Of Treatment Next Appt Details Follow Up: 2 Weeks, Reason: Delivery Provider Name:SEAN SALMON, 07/31/2024 10:00:00 AM, [address] [facility] [address], [place], [address], Procedure Notes * Category Sub-Category Detail Notes Orthosis & Impressions Impressions Upper and lower digital impressions were taken, , A wax bite registration was taken for nighttime orthosis Providers Dental Roofer Apprentice DONAVON Mcnamara Progress Notes * ESCALANTE MariahDOB:1955 (69 yo F)Acc No.[id number]:06/17/2024 Patient: Mariah RUTLEDGE Provider: JONI Esipnoza :1955 A ge:69 Y S ex:Female Date:06/17/2024 Address:[address] [place] [address] [facility] Subjective: * Chief Complaints: * 1 . STEPHEN. * HPI: S ubjective: Subjective P atient presents for impression.. * Medical History: * Medications: T aking Digestive Enzyme , Taking Vitamin D3 , Taking [place] DHA , Taking Magnesium Glycinate 120 MG Capsule as directed Orally , Taking Multivitamin , Taking Aspirin 81 Objective: * Vitals: Assessment: [...] - R09.81 Plan: * Treatment: * Procedures: O rthosis & Impressions: Impressions U pper and lower digital impressions were taken, , A wax bite registration was taken for nighttime orthosis. P roviders: Dental Roofer Apprentice DONAVON Bae. * Procedure Codes: 2 1076 Impression * Follow Up: 2 Weeks (Reason: Delivery) * Billing Information: * Visit Code: * Procedure Codes: 76123 Impression. * TIC COUNSELOR Sign off status: Completed true * Provider: JONI Espinoza Date: 08/18/2023 Generated for Jean shelton/Kenrick/Beatrizitting on: 10:08 AM GENETIC COUNSELOR History and Physical Notes * HPI (History of Present Illness) Category Sub-Category Detail Notes Category Not es Subjective Subjective Patient presents for impress ion.
--- OUTSIDE RECORDS SUMMARY | 2024-07-15 10:08 | XMS_ITS ---
Author Organization [facility] Address [facility] [address] [place] [address] Care Team Providers Care Sales Director Name Role Phone Jo-Ann Chin, Charu Unavailable Unavailable ANUP ROMERO [phone] Encounters Encounter Location Date Provider Diagnosis [place] [id number] [facility] [address] [place] [address] 06/19/2024 ANPU ROMERO Plan Of Treatment Next Appt Details Provider Name:SEAN SALMON, 07/31/2024 10:00:00 AM, [address] [facility], [address], [place], [address], Progress Notes * Mariah ESCALANTEDOB:1955 (69 yo F)Acc No.[id number]:06/19/2024 Patient: Mariah RUTLEDGE Provider: Rosangela Romero D.D.S., M.S. :1955 A ge:69 Y S ex:Female Date:06/19/2024 Address:[address] [phone] Subjective: * Chief Complaints: * * Medical History: Objective: * Vitals: Assessment: Plan: * Treatment: * Billing Information: * Visit Code: * Procedure Codes: * Electronic signature of ANUP ROMERO DDS on 07/15/2024 at 10:08 AM UPPER LEATHER CUTTER Sign off status: Pending * Provider: Rosangela Romero D.D.S., M.S. Date: 08/20/2023 Generated for Jean shelton/Kenrick/Mala on: 1 10:08 AM UPPER LEATHER CUTTER
--- NOTE | 2024-07-15 13:44 | OT.OPLDN2 ---
OT Outpatient Lymphedema Daily Note OT Outpatient Lymphedema Daily Note* Start: 09/04/23 12:32 Freq: Status: Active Protocol: Document 07/15/24 10:13 AMB (Rec: 07/15/24 11:57 AMB [id number]) E-signed By Michaela Castaneda, OTR/L, CLT, MICROARRAY ANALYST Type of Note Type of Note Type of Note Daily Note,Recert/Progress Note Visit Number 4 Comments MC Cert due 09/02/24 Insurance Information Insurance Information Insurance Information Medicare B OT OP Lymphedema Daily/Progress Note Current Condition/Medical Diagnosis Referring Provider Dr Angeles Treatment Diagnosis R Breast CA, Lymphedema Risk Date Of Onset 09/13/23 Medical History Medical History Cancer Treatment/Surgery Medical History Comments PMH (copied from medical chart ): Osteoarthritis of right knee ( Acute) M17.11 - Unilateral primary osteoarthritis, right knee ( ICD-10) Chondrocalcinosis of right knee (Acute) M11.261 - Other chondrocalcinosis, right knee (ICD-10) Lymphocytic colitis (Chronic) K52.832 - Lymphocytic colitis (ICD-10) Squamous cell carcinoma of skin of face (Resolved 06/2021 ) C44.320 - Squamous cell carcinoma of skin of unspecified parts of face (ICD -10) Sensorineural hearing loss ( SNHL) (Chronic) Mild to Moderate. H90.5 - Unspecified sensorineural hearing loss ( ICD-10) Obstructive sleep apnea syndrome (Chronic) Does not use CPAP. G47.33 - Obstructive sleep apnea (adult) (pediatric) (ICD -10) History of adenomatous polyp of colon (Acute 01/13/19) 01/13/19 7mm tubular adenoma. Next 2023. Z86.010 - Personal history of colonic polyps (ICD-10) Allergic rhinitis (Chronic 29/06) J30.9 - Allergic rhinitis, unspecified (ICD-10) Acute torticollis (Acute) M43.6 - Torticollis (ICD-10) Medical History (Reviewed 03/07 @ 13:46 by Raiza Biggs ~ LAT ATC) Trigger finger, left middle finger M65.332 - Trigger finger, left middle finger (ICD-10) Lymphocytic colitis K52.832 - Lymphocytic colitis (ICD-10) Squamous cell carcinoma of skin of face (06/2021) C44.320 - Squamous cell carcinoma of skin of unspecified parts of face (ICD -10) Sensorineural hearing loss ( SNHL) H90.5 - Unspecified sensorineural hearing loss ( ICD-10) Obstructive sleep apnea syndrome G47.33 - Obstructive sleep apnea (adult) (pediatric) (ICD -10) History of adenomatous polyp of colon (01/13/19) Z86.010 - Personal history of colonic polyps (ICD-10) Allergic rhinitis (10/29/11) J30.9 - Allergic rhinitis, unspecified (ICD-10) Surgical History Surgical History PSH (copied from medical chart ): Surgical History (Reviewed 03/07 @ 13:46 by Raiza Biggs ~ LAT ATC) H/O: hysterectomy Z90.710 - Acquired absence of both cervix and uterus (ICD-10 ) S/P right knee arthroscopy () Z98.890 - Other specified postprocedural states (ICD-10) History of colposcopy with cervical biopsy (1997) Z98.890 - Other specified postprocedural states (ICD-10) Family History Family History of Lymphedema No Current Work Status Current Work Status Retired Current Work Status Comments Pt is a retired after school coordinator Subjective Subjective Pt feels she is doing well and has no current concerns regarding lymphedema. Pt does have some tenderness just inferior to her right axilla, not sure why. Pt denies any abnormal swelling in her right upper quadrant. Pt has had TF release on her LUE hand and has also been diagnosed recently with sleep apnea and TMJ issues, she is now wearing an appliance to move her jaw forward. Living Situation Current Living Situation Home With Spouse Or SO Problem List Problem List Limited Knowledge of Lymphedema Treatment/Condition /Precautions,Limited Knowledge of Skin Care & Infection Precautions,Significant Risk For Infection For Lymphedema Related Complications,Does Not Have a HEP Problem List Comments Following right breast lumpectomy with SLNB, pt will be at risk for lymphedema in her right upper quadrant. Pt may also need radiation which will increase her risk. Exercise History Does Patient Exercise Regularly Yes Exercise Comments Pt enjoys walking, camping, and gardening, hoping to increase her walking when medically cleared and when the weather warms up. Pain Pain No ROM/Strength ROM/Strength Comments Pt demonstrates full AROM and strength in BUE, no pain. Compression History Does Patient Currently Wear Compression No During Daytime Does Patient Currently Wear Compression No At Night Current Swelling (Location/Pitting/Texture) Pitting Scale: 0 = No pitting 1+ Tissue returns to normal almost immediately 2+ Tissue returns after 15-30 seconds 3+ Tissue returns after 1-1/2 minutes 4+ Tissue returns after 2-3 minutes N/A Tissue no longer pits due to induration Tissue texture: Soft or indurated Clinical Presentation Area Pt is at risk in the right upper quadrant including right arm/hand, breast, upper back, and lateral trunk/axilla. Triggering Event & Start Date of Right breast lumpectomy with Swelling/Lymphedema LN removal and radiation therapy. Circumferential Measurements Upper Extremity Left Upper Extremity MCP (in cm) 19.5 Palm (in cm) 20.0 Smallest Wrist Measurement (in cm) 16.0 10 cm Above Smallest Wrist Measurement 22.0 20 cm Above Smallest Wrist Measurement 25.5 30 cm Above Smallest Wrist Measurement 30.2 40 cm Above Smallest Wrist Measurement 33.8 Total Girth in cm 167.0 Upper Extremity Volume Total in cm 2,173.74 Right Upper Extremity MCP (in cm) 19.2 Palm (in cm) 19.5 Smallest Wrist Measurement (in cm) 15.2 10 cm Above Smallest Wrist Measurement 21.5 20 cm Above Smallest Wrist Measurement 24.6 30 cm Above Smallest Wrist Measurement 29.8 40 cm Above Smallest Wrist Measurement 32.5 Total Girth in cm 162.3 Upper Extremity Volume Total in cm 2,051.18 Treatment Therapeutic Activity Minutes (minutes) 12 Therapeutic Activity Comments Re-assessment of limb including skin condition, status of axillary cording, and ROM. Unable to detect any cording today, skin is in excellent condition. Pt still has some mild tenderness at the lateral aspect of her right breast and lateral torso , likely due to regeneration of the nerves in this area, or could be due to scar tissue as it seems to be more tender in the lower part of her ALN dissection scar. I am unable to palpate any abnormalities, no increased pain with fascial stretch. Also unable to palpate or visualize any lymphedema / swelling. Re- assessment of circumferential limb measurements. Self-Care/Home Management Minutes ( 14 minutes) Self-Care/Home Management Comments Provided review of patient education regarding the lymphatic system, s/s of lymphedema, treatment options for lymphedema, implications of untreated lymphedema, infection and it's correlation to lymphedema as well as implications of untreated infection. Discussed risk reduction practices including skin care and monitoring strategies. Discussed the importance of regular exercise and healthy habits. Pt has been consistent with scar tissue mobilization and increasing her activity levels . Total Occupational Therapy Minutes 26 Assessment Assessment Pt presents post-operatively for continuation of lymphedema surveillance program. Following her 09/13/23 right sided lumpectomy with SLN biopsy, and XRT x 5, pt is at risk for lymphedema in her RUE / upper quadrant. Pt does not show any s/s of lymphedema in her right upper quadrant. She does have some tenderness that seems to correlate with the ALN dissection scar, but no swelling at this time. Pt will benefit from skilled OT intervention for pt education, monitoring / surveillance in order to provide early detection / intervention to assure best positive outcomes with fewer lymphedema related complications if the need arises. Pt demonstrates good interest and motivation to continue with surveillance program, feels the benefit. Patient Goals Patient Goals 1. Pt will demonstrate a general understanding of the lymphatic system, s/s of lymphedema, treatment of lymphedema, implications of untreated lymphedema, s/s of infection and the correlation of infection related to lymphedema. 3 months 2. Pt will be compliant with quarterly assessments for lymphedema surveillance in order to obtain early intervention with best outcomes if needed. 12 months Treatment Plan Treatment Plan Evaluation,Edema Control, Manual Therapy,Wound Care/Scar Management,Therapeutic Exercise,Therapeutic Activities,Self-Care/Home Management,Education Other Treatment Plan Will f/u with pt 4 weeks after surgery and then every 3 months for 12 months or prn if needs arise. Occupational Therapy Billing Units Treatment Minutes Timed Treatment Minutes 26 Total Treatment Minutes 26 Billing Units Self Care/Home Management 1 Therapeutic Activities 1 Certification Statement Certification Statement I Certify That: Therapy Services Provided, Therapy Plan Established, Therapy Plan Reviewed Recertification Information Recertification Information Initial Certification Date 09/04/23 Recertification Start Date 09/02/24 Recertification Due Date 06/02/24 Reasons to Continue Skilled Therapy Pt will continue with lymphedema surveillance program with her final re- assessment in 2-3 months. If the need arises, pt will transition to treatment as indicated at the time of need. Studies have shown that continued pt education / assessment leads to early detection and treatment of lymphedema which lends to the best long-term outcomes. [ End ] Rehabilitation Potential Good Click To Default 'Per treatment plan' Per treatment plan Continued Plan of Care and Interventions Per treatment plan Provider Signature Required Yes Provider Signature Shows Agreement With POC & Medical Necessity Physician NPI Number Write NPI# Here Physician Comment/Change Comment or Changes Physician Signature & Date Requested Please Sign/Date Here
== END 2024-11-12 23:59 | disposition home or self-care (01) ==
PROVIDERS: PCP Family Medicine; Visit Provider Surgery
DX: Z08 Encounter for follow-up examination after completed treatment for malignant neoplasm (principal); C50.911 Malignant neoplasm of unspecified site of right female breast
CPT/HCPCS: 97110; 97140; 97161; 97164; 97165; 97530; 97535

== ENCOUNTER 2024-08-04 13:11 | Outpatient (CLI) | payer MEDICARE, SELFPAY ==
--- NOTE | 2024-08-04 13:20 | CRLHL7_ITS ---
For Patients: As a result of the Century Cures Act, medical imaging exams and procedure reports are released immediately into your electronic medical record. You may view this report before your referring provider. If you have questions, please contact your health care provider. BILATERAL SCREENING MAMMOGRAM WITH COMPUTER-AIDED DETECTION AND TOMOSYNTHESIS TECHNIQUE: CC and MLO views were obtained. These mammographic images have been obtained using full-field digital technique. These mammographic images were interpreted with the benefit of computer-aided detection. Breast Tomosynthesis was used in this interpretation. COMPARISON FILM: 07/30/23, 07/12/21, 02/12/20. FINDINGS: The breasts are heterogeneously dense, which may obscure small masses. IMPRESSION: There is no radiographic evidence for malignancy. ASSESSMENT: BI-RADS Category 2: Benign RECOMMENDATION: Routine screening mammogram in 1 year. A lay language report of this examination will be provided to the patient. Tc Ruiz M.D. Diagnostic/Nuclear Medicine Radiologist [email or web address] SP/Dictated by: Tc Ruiz MD @ 08/06/2024 12:10:00 PM (Electronically Signed)
== END 2024-08-04 13:12 | disposition home or self-care (01) ==
LOC: MAMMO 13:12
PROVIDERS: PCP Family Medicine; Visit Provider Family Medicine
DX: Z12.31 Encounter for screening mammogram for malignant neoplasm of breast (principal); R92.333 Mammographic heterogeneous density, bilateral breasts
CPT/HCPCS: 77063; 77067

== ENCOUNTER 2024-12-25 13:54 | Outpatient (RCR) | payer MEDICARE, SELFPAY | END 2025-06-23 23:59 | disposition home or self-care (01) | LOC: CCIC 13:54 | PROVIDERS: PCP Family Medicine; Visit Provider Physician Assistant | DX: C50.911 Malignant neoplasm of unspecified site of right female breast (principal); Z17.0 Estrogen receptor positive status [ER+]; M81.0 Age-related osteoporosis without current pathological fracture | CPT/HCPCS: 99214; G0463 ==

== ENCOUNTER 2025-06-22 10:19 | Outpatient (CLI) | payer MEDICARE, SELFPAY ==
--- NOTE | 2025-07-01 13:08 | W.PM.SLEEP ---
Sleep Study Details Details Interpreting Provider: Clayton Date of Sleep Study: 06/22/25 Sleep Study Details: STUDY TYPE:? Home unattended ? BMI:? 26.96 ORDERING PROVIDER:? Clayton INDICATION:? Concern for sleep apnea ? SLEEP SUMMARY:? Monitor time 457.5 minutes RESPIRATORY SUMMARY:? AHI 6.4 per CMS guideline Low oxygen 85 0.6% of study oxygen less than 90% Snoring 97% PERIODIC LIMB MOVEMENTS OF SLEEP:? Not recorded CARDIAC:? Range 53-90, mean 64.4 beats per minute IMPRESSION:? Mild obstructive sleep apnea RECOMMENDATION: Treatment options include CPAP or dental appliance.
== END 2025-06-22 10:20 | disposition home or self-care (01) ==
PROVIDERS: PCP Family Medicine; Visit Provider Otolaryngology
DX: G47.33 Obstructive sleep apnea (adult) (pediatric) (principal)
CPT/HCPCS: 95806